=== PATIENT | male | born 1940 | race African-American/Black ===

== ENCOUNTER 2017-12-18 10:38 | Emergency (ER) | payer MEDICARE, MEDICAID ==
[~2017-12-18] VITALS: Ht 172.7 cm; Wt 70.0 kg
[~2017-12-18 10:38] MED LIST: AMLO10TA4; FURO-151; IBUP-779; POTASSIUM; SIMV10TA2
[2017-12-18] MEDS ORDERED: OXYMETAZOLINE HCL NASAL SPRAY 15ML BOTHNSTRLS STA (10:58)
[2017-12-18] MEDS ORDERED: VISCOUS LIDOCAINE 2% 15 ML UDC MM STA (10:58)
[2017-12-18 11:25] LABS: EOSINOPHILS % 2.3 % (0.0-5.0); HEMATOCRIT. 41.5 % (42.0-52.0); HEMOGLOBIN. 13.7 g/dL (14.0-18.0); LYMPHOCYTES % 20.7 % (20.0-50.0); MEAN CORPUSCULAR HEMOGLOBIN 30.2 pg (28.0-32.0); MEAN CORPUSCULAR VOLUME 91.4 fL (80.0-94.0); MEAN PLATELET VOLUME 10.6 fl (7.4-10.4); MONOCYTES % 8.2 % (2.0-8.0); NEUTROPHILS % 67.8 % (40.0-76.0); PLATELET 208 x1000/uL (130-400); RED BLOOD CELL COUNT 4.54 mill/uL (4.7-6.1); RED CELL DISTRIBUTION WIDTH 13.4 % (11.6-14.6)
[2017-12-18 11:29] LABS: CHLORIDE 102 mEq/L (98-107)
[2017-12-18 11:32] LABS: PROTHROMBIN TIME 10.8 sec (9.4-11.6)
[2017-12-18 14:45] VITALS: BP 182/94
== END 2017-12-18 14:46 | disposition home or self-care (01) ==
LOC: ER 10:38
DX: R04.0 Epistaxis (principal); I10 Essential (primary) hypertension; D64.9 Anemia, unspecified; J44.9 Chronic obstructive pulmonary disease, unspecified; E78.00 Pure hypercholesterolemia, unspecified; E87.3 Alkalosis
CPT/HCPCS: 30901; 36415; 80053; 85025; 85610; 99284

== ENCOUNTER 2019-12-24 10:30 | Inpatient (IN) | payer OTHER, MEDICAID ==
[~2019-12-24] VITALS: Ht 180.3 cm; Wt 71.7 kg
[2019-12-24 11:33] LABS: CHLORIDE 103 mEq/L (98-107)
[2019-12-24 11:45] LABS: BASOPHILS % 0.7 % (0.0-2.0); EOSINOPHILS % 0.2 % (0.0-5.0); HEMATOCRIT. 46.8 % (42.0-52.0); HEMOGLOBIN. 14.7 g/dL (14.0-18.0); LYMPHOCYTES % 7.1 % (20.0-50.0); MEAN CORPUSCULAR HEMOGLOBIN 28.2 pg (28.0-32.0); MEAN CORPUSCULAR VOLUME 89.3 fL (80.0-94.0); MEAN PLATELET VOLUME 9.8 fl (7.4-10.4); MONOCYTES % 8.5 % (2.0-8.0); NEUTROPHILS % 83.5 % (40.0-76.0); PLATELET 266 x1000/uL (130-400); RED BLOOD CELL COUNT 5.24 mill/uL (4.7-6.1); RED CELL DISTRIBUTION WIDTH 13.3 % (11.6-14.6)
[2019-12-24] MEDS ORDERED: CLONIDINE 0.1MG TABLET PO PRN (14:00)
[2019-12-24] MEDS ORDERED: DIPHENHYDRAMINE 50MG/ML VIAL IV PRN (14:00)
[2019-12-24] MEDS: ENOXAPARIN 40MG/0.4ML SYR SUBCUT SCH ×2 (14:00→20:30)
[2019-12-24] MEDS ORDERED: IPRATROPIUM/ALBUTEROL 0.5-3(2.5)MG/3ML NEB HHN PRN (14:00)
[2019-12-24] MEDS ORDERED: ONDANSETRON HCL 4MG/2ML INJ IV PRN (14:00)
[2019-12-24] MEDS ORDERED: FUROSEMIDE 40MG/4ML VIAL IVP SCH (15:00)
[2019-12-24 15:11] LABS: PHOSPHORUS 3.6 mg/dL (2.5-4.9)
[2019-12-24] MEDS ORDERED: DEXTROSE 50% WATER 50ML SYRINGE IV ONE (16:08)
[2019-12-24] MEDS ORDERED: DEXT 5%/0.9% NACL 1,000 ML IV ONE (16:30)
[2019-12-24] MEDS ORDERED: DEXTROSE 50% WATER 50ML SYRINGE IV PRN (16:30)
[2019-12-24] MEDS: BLOOD SUGAR DIAGNOSTIC STRIP TEST SCH (17:07)
[2019-12-24] MEDS ORDERED: SUCCINYLCHOLINE CHLORIDE 200MG/10ML IV ONE (19:30)
[2019-12-24] MEDS ORDERED: ETOMIDATE 2MG/ML 10ML VIAL IV ONE (19:30)
[2019-12-24] MEDS ORDERED: PROPOFOL 10MG/ML 100ML 100 ML IV ONE (19:30)
[2019-12-24] MEDS: PANTOPRAZOLE SODIUM 40 MG/VIAL IV SCH (20:15)
[2019-12-24] MEDS ORDERED: ASPIRIN 81MG TABLET PO NR (20:15)
[2019-12-24 20:28] LABS: BG BASE EXCESS 1.9 mmol/L (-2.0-2.0); BG CARBOXYHEMOGLOBIN 1.1 % (0.5-1.5); BG DEOXYHEMOGLOBIN 16.8 % (0.0-5.0); BG FRACTION INSPIRED OXYGEN 100; BG HCO3 ACT 34.5 mmol/L (22.0-26.0); BG METHEMOGLOBIN 0.4 % (0.0-1.5); BG OXYGEN SATURATION 82.9 % (92.0-98.5); BG OXYHEMOGLOBIN 81.7 % (94.0-97.0); BG PCO2 95.7 mmHg (35.0-45.0); BG PH 7.175 (7.350-7.450); BG PO2 53.6 mmHg (75.0-100.0); BG SAMPLE SITE RIGHT RADIAL; BG TIDAL VOLUME(mL) 500 mL; BG TOTAL HEMOGLOBIN 16.9 g/dL (12.0-18.0); BG VENT MODE VENT - A/C; BG VENT RATE 14 set
[2019-12-24] MEDS ORDERED: ATORVASTATIN CALCIUM 10MG TABLET PO SCH (21:00)
[2019-12-24] MEDS ORDERED: NOREPINEPHRINE 4 MG in DEXT 5% WATER 246 ML IV ONE (21:15)
[2019-12-24] MEDS ORDERED: MIDAZOLAM HCL 50 MG in DEXTROSE 5% WATER 40 ML IV PRN (21:15)
[2019-12-24] MEDS ORDERED: MIDAZOLAM HCL 50 MG in DEXTROSE 5% WATER 40 ML IV ONE (21:15)
[2019-12-24] MEDS ORDERED: NOREPINEPHRINE 4MG/250ML PMX 250 ML IV PRN (21:15)
[2019-12-24 22:07] LABS: BG BASE EXCESS 2.4 mmol/L (-2.0-2.0); BG CARBOXYHEMOGLOBIN 1.1 % (0.5-1.5); BG DEOXYHEMOGLOBIN 11.1 % (0.0-5.0); BG FRACTION INSPIRED OXYGEN 100; BG HCO3 ACT 32.6 mmol/L (22.0-26.0); BG METHEMOGLOBIN 0.3 % (0.0-1.5); BG OXYGEN SATURATION 88.7 % (92.0-98.5); BG OXYHEMOGLOBIN 87.5 % (94.0-97.0); BG PCO2 76.5 mmHg (35.0-45.0); BG PH 7.248 (7.350-7.450); BG PO2 58.3 mmHg (75.0-100.0); BG SAMPLE SITE RIGHT BRACHIAL; BG TIDAL VOLUME(mL) 500 mL; BG TOTAL HEMOGLOBIN 16.6 g/dL (12.0-18.0); BG VENT MODE VENT - A/C; BG VENT RATE 20 set
[2019-12-25] VITALS (82 sets, daily range): BP systolic 59–145; BP diastolic 30–82
[2019-12-25 04:26] LABS: BG BASE EXCESS 3.9 mmol/L (-2.0-2.0); BG CARBOXYHEMOGLOBIN 0.7 % (0.5-1.5); BG DEOXYHEMOGLOBIN 0.4 % (0.0-5.0); BG FRACTION INSPIRED OXYGEN 100; BG METHEMOGLOBIN 0.5 % (0.0-1.5); BG OXYGEN SATURATION 99.6 % (92.0-98.5); BG OXYHEMOGLOBIN 98.4 % (94.0-97.0); BG PCO2 40.3 mmHg (35.0-45.0); BG PO2 211.8 mmHg (75.0-100.0); BG SAMPLE SITE RIGHT RADIAL; BG TIDAL VOLUME(mL) 550 mL; BG TOTAL HEMOGLOBIN 15.8 g/dL (12.0-18.0); BG VENT MODE VENT - A/C; BG VENT RATE 20 set
[2019-12-25] MEDS ORDERED: PHENYLEPHRINE 40 MG in DEXT 5% WATER 496 ML IV PRN ×2 (04:45→05:00)
[2019-12-25] MEDS ORDERED: PHENYLEPHRINE 40 MG in DEXT 5% WATER 496 ML IV ONE (05:00)
[2019-12-25] MEDS ORDERED: MIDAZOLAM HCL 100 MG in DEXT 5% WATER 80 ML IV PRN (05:00)
[2019-12-25] MEDS ORDERED: FENTANYL CITRATE/PF 1,000 MCG in SODIUM CHLORIDE 0.9% 80 ML IV PRN (05:00)
[2019-12-25] MEDS: ACETAMINOPHEN 650MG/20.3ML UDC PO PRN (05:12)
[2019-12-25 05:57] LABS: BASOPHILS % 0.4 % (0.0-2.0); EOSINOPHILS % 0.2 % (0.0-5.0); HEMATOCRIT. 47.5 % (42.0-52.0); HEMOGLOBIN. 14.9 g/dL (14.0-18.0); LYMPHOCYTES % 11.2 % (20.0-50.0); MEAN CORPUSCULAR HEMOGLOBIN 28.2 pg (28.0-32.0); MEAN PLATELET VOLUME 10.1 fl (7.4-10.4); MONOCYTES % 9.1 % (2.0-8.0); NEUTROPHILS % 79.1 % (40.0-76.0); PLATELET 253 x1000/uL (130-400); RED BLOOD CELL COUNT 5.28 mill/uL (4.7-6.1); RED CELL DISTRIBUTION WIDTH 13.9 % (11.6-14.6)
[2019-12-25 05:59] LABS: CHLORIDE 101 mEq/L (98-107)
[2019-12-25 06:08] LABS: LDL CHOLESTEROL 85 mg/dL (5-100)
[2019-12-25 06:09] LABS: HDL CHOLESTEROL 41 mg/dL (40-59)
[2019-12-25] MEDS ORDERED: DOPAMINE 800MG PREMIX (DOUBLE) 250 ML IV PRN (06:45)
[2019-12-25] MEDS: BLOOD SUGAR DIAGNOSTIC STRIP TEST SCH ×4 (07:36→21:41)
[2019-12-25] MEDS: PANTOPRAZOLE SODIUM 40 MG/VIAL IV SCH (08:02)
[2019-12-25] MEDS: INSULIN LISPRO 100 UNITS/ML SUBCUT SCH ×4 (08:03→21:32)
[2019-12-25] MEDS ORDERED: FUROSEMIDE 40MG/4ML VIAL IVP SCH (09:00)
[2019-12-25] MEDS: ASPIRIN 81MG TABLET NG SCH (09:38)
[2019-12-25] MEDS: IPRATROPIUM/ALBUTEROL 0.5-3(2.5)MG/3ML NEB HHN SCH ×3 (09:46→20:28)
[2019-12-25] MEDS: ENOXAPARIN 80MG/0.8ML SYR SUBCUT SCH ×2 (12:19→21:31)
[2019-12-25] MEDS ORDERED: PHENYLEPHRINE 40 MG in SODIUM CHLORIDE 0.9% 496 ML IV PRN (14:37)
[2019-12-25] MEDS ORDERED: ALBUMIN HUMAN 25GM/100ML (25%) IV NR (14:45)
[2019-12-25] MEDS ORDERED: VANCOMYCIN 1,750 MG in DEXT 5% WATER 250 ML IV NR (17:00)
[2019-12-25] MEDS ORDERED: PROPOFOL 10MG/ML 100ML 100 ML IV PRN (18:30)
[2019-12-25] MEDS: PIPERACILLIN/TAZOBACTAM 2.25 G in DEXTROSE 5% WATER 50 ML IV SCH (21:31)
[2019-12-25] MEDS: ATORVASTATIN CALCIUM 40MG TABLET PO SCH (21:31)
[2019-12-26] VITALS (88 sets, daily range): BP systolic 68–145; BP diastolic 39–101
[2019-12-26] MEDS: PHENYLEPHRINE 40 MG in SODIUM CHLORIDE 0.9% 496 ML IV PRN ×2 (01:20→12:00)
[2019-12-26] MEDS: IPRATROPIUM/ALBUTEROL 0.5-3(2.5)MG/3ML NEB HHN SCH ×3 (02:18→14:53)
[2019-12-26] MEDS: PIPERACILLIN/TAZOBACTAM 2.25 G in DEXTROSE 5% WATER 50 ML IV SCH ×3 (05:19→21:26)
[2019-12-26 05:51] LABS: BASOPHILS % 0.4 % (0.0-2.0); EOSINOPHILS % 0.1 % (0.0-5.0); HEMATOCRIT. 39.8 % (42.0-52.0); HEMOGLOBIN. 13.2 g/dL (14.0-18.0); LYMPHOCYTES % 7.4 % (20.0-50.0); MEAN CORPUSCULAR VOLUME 87.3 fL (80.0-94.0); MEAN PLATELET VOLUME 10.3 fl (7.4-10.4); MONOCYTES % 6.4 % (2.0-8.0); NEUTROPHILS % 85.7 % (40.0-76.0); PLATELET 229 x1000/uL (130-400); RED BLOOD CELL COUNT 4.56 mill/uL (4.7-6.1); RED CELL DISTRIBUTION WIDTH 13.3 % (11.6-14.6)
[2019-12-26 05:56] LABS: INR 1.3; PROTHROMBIN TIME 13.9 sec (9.6-11.0)
[2019-12-26 06:08] LABS: PHOSPHORUS 1.5 mg/dL (2.5-4.9)
[2019-12-26] MEDS: PANTOPRAZOLE SODIUM 40 MG/VIAL IV SCH (08:41)
[2019-12-26] MEDS: ENOXAPARIN 80MG/0.8ML SYR SUBCUT SCH ×2 (08:42→20:25)
[2019-12-26] MEDS: ASPIRIN 81MG TABLET NG SCH (08:42)
[2019-12-26] MEDS: INSULIN LISPRO 100 UNITS/ML SUBCUT SCH ×4 (08:43→20:27)
[2019-12-26] MEDS: BLOOD SUGAR DIAGNOSTIC STRIP TEST SCH ×4 (08:43→20:28)
[2019-12-26] MEDS: ACETAMINOPHEN 650MG/20.3ML UDC PO PRN ×2 (08:44→11:27)
[2019-12-26] MEDS: VANCOMYCIN 750 MG PREMIX 150 ML IV SCH (09:08)
[2019-12-26 09:15] LABS: BG BASE EXCESS 4.3 mmol/L (-2.0-2.0); BG CARBOXYHEMOGLOBIN 0.8 % (0.5-1.5); BG DEOXYHEMOGLOBIN 4.5 % (0.0-5.0); BG FRACTION INSPIRED OXYGEN 50; BG HCO3 ACT 29.7 mmol/L (22.0-26.0); BG METHEMOGLOBIN 0.3 % (0.0-1.5); BG OXYGEN SATURATION 95.4 % (92.0-98.5); BG OXYHEMOGLOBIN 94.4 % (94.0-97.0); BG PCO2 47.2 mmHg (35.0-45.0); BG PH 7.416 (7.350-7.450); BG PO2 75.8 mmHg (75.0-100.0); BG SAMPLE SITE RIGHT RADIAL; BG TIDAL VOLUME(mL) 550 mL; BG TOTAL HEMOGLOBIN 13.4 g/dL (12.0-18.0); BG VENT MODE VENT - A/C; BG VENT RATE 16 set
[2019-12-26] MEDS ORDERED: PROPOFOL 10MG/ML 100ML 100 ML IV PRN (11:45)
[2019-12-26] MEDS: MIDODRINE HCL 5MG TABLET NG SCH ×2 (15:16→17:59)
[2019-12-26] MEDS ORDERED: SODIUM PHOS,M-BASIC-D-BASIC 30 MM in DEXT 5% WATER 500 ML IV SCH (16:00)
[2019-12-26] MEDS: ATORVASTATIN CALCIUM 40MG TABLET PO SCH (20:25)
[2019-12-27] VITALS (86 sets, daily range): BP systolic 65–167; BP diastolic 35–127
[2019-12-27] MEDS: IPRATROPIUM/ALBUTEROL 0.5-3(2.5)MG/3ML NEB HHN SCH ×4 (00:58→20:30)
[2019-12-27] MEDS: PHENYLEPHRINE 40 MG in SODIUM CHLORIDE 0.9% 496 ML IV PRN ×2 (01:12→12:11)
[2019-12-27] MEDS: VANCOMYCIN 750 MG PREMIX 150 ML IV SCH ×2 (05:14→21:14)
[2019-12-27] MEDS: PIPERACILLIN/TAZOBACTAM 2.25 G in DEXTROSE 5% WATER 50 ML IV SCH (05:14)
[2019-12-27 06:22] LABS: HEMATOCRIT. 38.2 % (42.0-52.0); HEMOGLOBIN. 12.2 g/dL (14.0-18.0); MEAN CORPUSCULAR VOLUME 87.3 fL (80.0-94.0); MEAN PLATELET VOLUME 10.6 fl (7.4-10.4); PLATELET 210 x1000/uL (130-400); RED BLOOD CELL COUNT 4.37 mill/uL (4.7-6.1); RED CELL DISTRIBUTION WIDTH 13.7 % (11.6-14.6)
[2019-12-27 06:27] LABS: PHOSPHORUS 2.7 mg/dL (2.5-4.9)
[2019-12-27] MEDS: ENOXAPARIN 80MG/0.8ML SYR SUBCUT SCH ×2 (08:22→20:25)
[2019-12-27] MEDS: MIDODRINE HCL 5MG TABLET NG SCH ×3 (08:23→17:05)
[2019-12-27] MEDS: ASPIRIN 81MG TABLET NG SCH (08:23)
[2019-12-27] MEDS: PANTOPRAZOLE SODIUM 40 MG/VIAL IV SCH (08:23)
[2019-12-27] MEDS: BLOOD SUGAR DIAGNOSTIC STRIP TEST SCH ×4 (08:26→21:00)
[2019-12-27] MEDS: INSULIN LISPRO 100 UNITS/ML SUBCUT SCH ×4 (08:26→21:14)
[2019-12-27 08:29] LABS: PLATELET ESTIMATE NORMAL
[2019-12-27 08:41] LABS: BG BASE EXCESS 2.9 mmol/L (-2.0-2.0); BG CARBOXYHEMOGLOBIN 0.3 % (0.5-1.5); BG DEOXYHEMOGLOBIN 2.5 % (0.0-5.0); BG FRACTION INSPIRED OXYGEN 50; BG HCO3 ACT 27.3 mmol/L (22.0-26.0); BG METHEMOGLOBIN 0.3 % (0.0-1.5); BG OXYGEN SATURATION 97.5 % (92.0-98.5); BG OXYHEMOGLOBIN 96.9 % (94.0-97.0); BG PH 7.441 (7.350-7.450); BG PO2 99.3 mmHg (75.0-100.0); BG SAMPLE SITE RIGHT RADIAL; BG TIDAL VOLUME(mL) 550 mL; BG TOTAL HEMOGLOBIN 12.7 g/dL (12.0-18.0); BG VENT MODE VENT - A/C; BG VENT RATE 16 set
[2019-12-27] MEDS: PIPERACILLIN/TAZOBACTAM 3.375 G in DEXT 5% WATER 100 ML IV SCH ×3 (13:00→23:16)
[2019-12-27] MEDS ORDERED: FUROSEMIDE 20MG/2ML VIAL IVP NR (13:15)
[2019-12-27] MEDS: PROPOFOL 10MG/ML 100ML 100 ML IV PRN ×2 (15:34→23:33)
[2019-12-27] MEDS: ATORVASTATIN CALCIUM 40MG TABLET PO SCH (20:24)
[2019-12-27] MEDS: ACETYLCYSTEINE 100MG/ML 10% VIAL 4ML INH SCH (20:30)
[2019-12-28] VITALS (81 sets, daily range): BP systolic 83–149; BP diastolic 25–84
[2019-12-28] MEDS: IPRATROPIUM/ALBUTEROL 0.5-3(2.5)MG/3ML NEB HHN SCH ×4 (02:17→20:16)
[2019-12-28] MEDS: PIPERACILLIN/TAZOBACTAM 3.375 G in DEXT 5% WATER 100 ML IV SCH ×3 (05:07→17:16)
[2019-12-28 06:31] LABS: HEMATOCRIT. 36.9 % (42.0-52.0); HEMOGLOBIN. 11.9 g/dL (14.0-18.0); MEAN CORPUSCULAR VOLUME 87.3 fL (80.0-94.0); MEAN PLATELET VOLUME 10.8 fl (7.4-10.4); PLATELET 158 x1000/uL (130-400); RED BLOOD CELL COUNT 4.23 mill/uL (4.7-6.1); RED CELL DISTRIBUTION WIDTH 13.5 % (11.6-14.6)
[2019-12-28 06:56] LABS: PHOSPHORUS 2.2 mg/dL (2.5-4.9)
[2019-12-28] MEDS: BLOOD SUGAR DIAGNOSTIC STRIP TEST SCH ×4 (07:59→20:59)
[2019-12-28 08:03] LABS: PLATELET ESTIMATE NORMAL
[2019-12-28] MEDS: ACETYLCYSTEINE 100MG/ML 10% VIAL 4ML INH SCH ×2 (08:11→20:15)
[2019-12-28] MEDS: PANTOPRAZOLE SODIUM 40 MG/VIAL IV SCH (08:49)
[2019-12-28] MEDS: ENOXAPARIN 80MG/0.8ML SYR SUBCUT SCH ×2 (08:49→20:42)
[2019-12-28] MEDS: MIDODRINE HCL 5MG TABLET NG SCH ×3 (08:50→17:16)
[2019-12-28] MEDS: ASPIRIN 81MG TABLET NG SCH (08:50)
[2019-12-28] MEDS: INSULIN LISPRO 100 UNITS/ML SUBCUT SCH ×4 (08:51→21:09)
[2019-12-28 09:57] LABS: BG BASE EXCESS 4.4 mmol/L (-2.0-2.0); BG CARBOXYHEMOGLOBIN 0.2 % (0.5-1.5); BG DEOXYHEMOGLOBIN 1.3 % (0.0-5.0); BG FRACTION INSPIRED OXYGEN 40; BG HCO3 ACT 28.1 mmol/L (22.0-26.0); BG METHEMOGLOBIN 0.3 % (0.0-1.5); BG OXYGEN SATURATION 98.7 % (92.0-98.5); BG OXYHEMOGLOBIN 98.2 % (94.0-97.0); BG PCO2 38.5 mmHg (35.0-45.0); BG PH 7.481 (7.350-7.450); BG SAMPLE SITE RIGHT RADIAL; BG TIDAL VOLUME(mL) 550 mL; BG VENT MODE VENT - A/C; BG VENT RATE 16 set
[2019-12-28] MEDS ORDERED: PROPOFOL 10MG/ML 100ML 100 ML IV PRN (11:00)
[2019-12-28] MEDS: PROPOFOL 10MG/ML 100ML 100 ML IV PRN ×2 (12:12→20:44)
[2019-12-28] MEDS: VANCOMYCIN 1 G PREMIX 200 ML IV SCH (14:45)
[2019-12-28] MEDS ORDERED: POTASSIUM PHOS,M-BASIC-D-BASIC 20 MMOL in DEXT 5% WATER 243.3333 ML IV NR (17:00)
[2019-12-28] MEDS: ATORVASTATIN CALCIUM 40MG TABLET PO SCH (20:42)
[2019-12-29] VITALS (70 sets, daily range): BP systolic 87–169; BP diastolic 44–89
[2019-12-29] MEDS: PIPERACILLIN/TAZOBACTAM 3.375 G in DEXT 5% WATER 100 ML IV SCH ×4 (00:06→17:25)
[2019-12-29] MEDS ORDERED: PROPOFOL 10MG/ML 100ML 100 ML IV PRN ×2 (00:30)
[2019-12-29] MEDS: IPRATROPIUM/ALBUTEROL 0.5-3(2.5)MG/3ML NEB HHN SCH ×5 (02:30→20:40)
[2019-12-29 04:34] LABS: HEMATOCRIT. 36.9 % (42.0-52.0); HEMOGLOBIN. 11.9 g/dL (14.0-18.0); MEAN CORPUSCULAR HEMOGLOBIN 28.3 pg (28.0-32.0); MEAN CORPUSCULAR VOLUME 87.6 fL (80.0-94.0); MEAN PLATELET VOLUME 11.1 fl (7.4-10.4); PHOSPHORUS 3.8 mg/dL (2.5-4.9); PLATELET 150 x1000/uL (130-400); RED BLOOD CELL COUNT 4.21 mill/uL (4.7-6.1); RED CELL DISTRIBUTION WIDTH 13.5 % (11.6-14.6)
[2019-12-29] MEDS: PANTOPRAZOLE SODIUM 40 MG/VIAL IV SCH (08:13)
[2019-12-29] MEDS: ENOXAPARIN 80MG/0.8ML SYR SUBCUT SCH ×2 (08:13→21:21)
[2019-12-29] MEDS: ASPIRIN 81MG TABLET NG SCH (08:13)
[2019-12-29] MEDS: INSULIN LISPRO 100 UNITS/ML SUBCUT SCH ×4 (08:13→21:23)
[2019-12-29] MEDS: MIDODRINE HCL 5MG TABLET NG SCH ×3 (08:14→17:25)
[2019-12-29] MEDS: BLOOD SUGAR DIAGNOSTIC STRIP TEST SCH ×4 (08:15→21:24)
[2019-12-29] MEDS: VANCOMYCIN 1 G PREMIX 200 ML IV SCH (08:15)
[2019-12-29] MEDS: ACETYLCYSTEINE 100MG/ML 10% VIAL 4ML INH SCH ×2 (08:49→20:40)
[2019-12-29 09:44] LABS: PLATELET ESTIMATE NORMAL
[2019-12-29 10:03] LABS: BG BASE EXCESS -1.5 mmol/L (-2.0-2.0); BG DEOXYHEMOGLOBIN 5.2 % (0.0-5.0); BG FRACTION INSPIRED OXYGEN 35; BG HCO3 ACT 23.6 mmol/L (22.0-26.0); BG METHEMOGLOBIN 0.3 % (0.0-1.5); BG OXYGEN SATURATION 94.7 % (92.0-98.5); BG OXYHEMOGLOBIN 93.5 % (94.0-97.0); BG PCO2 41.5 mmHg (35.0-45.0); BG PH 7.373 (7.350-7.450); BG PO2 77.1 mmHg (75.0-100.0); BG SAMPLE SITE RIGHT RADIAL; BG TIDAL VOLUME(mL) 550 mL; BG TOTAL HEMOGLOBIN 11.7 g/dL (12.0-18.0); BG VENT MODE VENT - A/C; BG VENT RATE 16 set
[2019-12-29] MEDS ORDERED: MIDAZOLAM HCL 100 MG in DEXT 5% WATER 80 ML IV PRN (11:00)
[2019-12-29] MEDS: METOCLOPRAMIDE HCL 10MG/2ML VIAL IV SCH ×2 (12:20→17:25)
[2019-12-29] MEDS ORDERED: SODIUM CHLORIDE 0.9% 1,000 ML IV SCH (18:00)
[2019-12-29] MEDS ORDERED: SODIUM CHLORIDE 0.9% 500 ML IV ONE (18:30)
[2019-12-29] MEDS: ATORVASTATIN CALCIUM 40MG TABLET PO SCH (21:21)
[2019-12-30] VITALS (40 sets, daily range): BP systolic 80–157; BP diastolic 54–103
[2019-12-30] MEDS: PIPERACILLIN/TAZOBACTAM 3.375 G in DEXT 5% WATER 100 ML IV SCH ×5 (00:23→23:45)
[2019-12-30] MEDS: METOCLOPRAMIDE HCL 10MG/2ML VIAL IV SCH ×5 (00:23→23:45)
[2019-12-30] MEDS: IPRATROPIUM/ALBUTEROL 0.5-3(2.5)MG/3ML NEB HHN SCH ×4 (01:40→20:38)
[2019-12-30] MEDS ORDERED: VANCOMYCIN 1,000 MG in DEXT 5% WATER 250 ML IV SCH (03:00)
[2019-12-30 06:08] LABS: BASOPHILS % 0.4 % (0.0-2.0); EOSINOPHILS % 2.3 % (0.0-5.0); HEMATOCRIT. 35.8 % (42.0-52.0); HEMOGLOBIN. 11.7 g/dL (14.0-18.0); LYMPHOCYTES % 8.3 % (20.0-50.0); MEAN CORPUSCULAR HEMOGLOBIN 28.3 pg (28.0-32.0); MEAN CORPUSCULAR VOLUME 86.8 fL (80.0-94.0); MEAN PLATELET VOLUME 11.6 fl (7.4-10.4); PLATELET 172 x1000/uL (130-400); RED BLOOD CELL COUNT 4.13 mill/uL (4.7-6.1); RED CELL DISTRIBUTION WIDTH 13.6 % (11.6-14.6)
[2019-12-30 06:15] LABS: PHOSPHORUS 3.4 mg/dL (2.5-4.9)
[2019-12-30] MEDS: ACETYLCYSTEINE 100MG/ML 10% VIAL 4ML INH SCH ×2 (08:47→20:38)
[2019-12-30] MEDS: ENOXAPARIN 80MG/0.8ML SYR SUBCUT SCH ×2 (08:57→20:41)
[2019-12-30] MEDS: PANTOPRAZOLE SODIUM 40 MG/VIAL IV SCH (08:57)
[2019-12-30] MEDS: MIDODRINE HCL 5MG TABLET NG SCH ×3 (08:58→18:00)
[2019-12-30] MEDS: ASPIRIN 81MG TABLET NG SCH (08:58)
[2019-12-30 10:07] LABS: BG BASE EXCESS 2.2 mmol/L (-2.0-2.0); BG CARBOXYHEMOGLOBIN 0.6 % (0.5-1.5); BG DEOXYHEMOGLOBIN 5.2 % (0.0-5.0); BG FRACTION INSPIRED OXYGEN 35; BG HCO3 ACT 27.7 mmol/L (22.0-26.0); BG METHEMOGLOBIN 0.3 % (0.0-1.5); BG OXYGEN SATURATION 94.8 % (92.0-98.5); BG OXYHEMOGLOBIN 93.9 % (94.0-97.0); BG PCO2 46.9 mmHg (35.0-45.0); BG PH 7.389 (7.350-7.450); BG PO2 76.9 mmHg (75.0-100.0); BG SAMPLE SITE RIGHT RADIAL; BG TIDAL VOLUME(mL) 550 mL; BG VENT MODE VENT - A/C; BG VENT RATE 16 set
[2019-12-30] MEDS: BLOOD SUGAR DIAGNOSTIC STRIP TEST SCH ×3 (11:55→23:36)
[2019-12-30] MEDS: INSULIN LISPRO 100 UNITS/ML SUBCUT SCH ×3 (12:09→23:45)
[2019-12-30] MEDS: ACETAMINOPHEN 650MG/20.3ML UDC PO PRN (18:24)
[2019-12-30] MEDS: ATORVASTATIN CALCIUM 40MG TABLET PO SCH (20:40)
[2019-12-31] VITALS (24 sets, daily range): BP systolic 123–151; BP diastolic 64–91
[2019-12-31] MEDS: IPRATROPIUM/ALBUTEROL 0.5-3(2.5)MG/3ML NEB HHN SCH ×3 (01:42→19:46)
[2019-12-31] MEDS: BLOOD SUGAR DIAGNOSTIC STRIP TEST SCH ×3 (06:02→17:40)
[2019-12-31] MEDS: METOCLOPRAMIDE HCL 10MG/2ML VIAL IV SCH (06:18)
[2019-12-31] MEDS: PIPERACILLIN/TAZOBACTAM 3.375 G in DEXT 5% WATER 100 ML IV SCH ×3 (06:18→17:05)
[2019-12-31] MEDS: INSULIN LISPRO 100 UNITS/ML SUBCUT SCH ×3 (06:19→17:48)
[2019-12-31 06:59] LABS: BASOPHILS % 0.4 % (0.0-2.0); EOSINOPHILS % 1.3 % (0.0-5.0); HEMOGLOBIN. 11.6 g/dL (14.0-18.0); LYMPHOCYTES % 9.3 % (20.0-50.0); MEAN CORPUSCULAR HEMOGLOBIN 28.1 pg (28.0-32.0); MEAN CORPUSCULAR VOLUME 87.6 fL (80.0-94.0); MEAN PLATELET VOLUME 11.5 fl (7.4-10.4); MONOCYTES % 14.9 % (2.0-8.0); NEUTROPHILS % 74.1 % (40.0-76.0); PLATELET 210 x1000/uL (130-400); RED BLOOD CELL COUNT 4.11 mill/uL (4.7-6.1); RED CELL DISTRIBUTION WIDTH 13.3 % (11.6-14.6)
[2019-12-31 07:19] LABS: CHLORIDE 101 mEq/L (98-107)
[2019-12-31 07:27] LABS: PHOSPHORUS 2.8 mg/dL (2.5-4.9)
[2019-12-31] MEDS: ACETYLCYSTEINE 100MG/ML 10% VIAL 4ML INH SCH ×2 (07:43→19:46)
[2019-12-31] MEDS: PANTOPRAZOLE SODIUM 40 MG/VIAL IV SCH (08:26)
[2019-12-31] MEDS: MIDODRINE HCL 5MG TABLET NG SCH ×3 (08:26→17:00)
[2019-12-31] MEDS: ASPIRIN 81MG TABLET NG SCH (08:26)
[2019-12-31] MEDS: ENOXAPARIN 80MG/0.8ML SYR SUBCUT SCH ×2 (08:26→20:21)
[2019-12-31 09:09] LABS: BG BASE EXCESS 3.7 mmol/L (-2.0-2.0); BG CARBOXYHEMOGLOBIN 0.7 % (0.5-1.5); BG DEOXYHEMOGLOBIN 5.6 % (0.0-5.0); BG FRACTION INSPIRED OXYGEN 35; BG HCO3 ACT 29.9 mmol/L (22.0-26.0); BG METHEMOGLOBIN 0.4 % (0.0-1.5); BG OXYGEN SATURATION 94.3 % (92.0-98.5); BG OXYHEMOGLOBIN 93.3 % (94.0-97.0); BG PH 7.377 (7.350-7.450); BG PO2 75.4 mmHg (75.0-100.0); BG SAMPLE SITE RIGHT RADIAL; BG TIDAL VOLUME(mL) 550 mL; BG TOTAL HEMOGLOBIN 12.2 g/dL (12.0-18.0); BG VENT MODE VENT - A/C; BG VENT RATE 12 set
[2019-12-31] MEDS ORDERED: LIDOCAINE HCL 1% 20ML VIAL (Pyxis) INJ ONE (09:10)
[2019-12-31] MEDS ORDERED: LORAZEPAM 2MG/ML CPJ IV PRN (10:45)
[2019-12-31] MEDS: ATORVASTATIN CALCIUM 40MG TABLET PO SCH (20:21)
[2019-12-31] MEDS: ACETAMINOPHEN 650MG/20.3ML UDC PO PRN (20:43)
[2020-01-01] VITALS (23 sets, daily range): BP systolic 90–151; BP diastolic 45–96
[2020-01-01] MEDS: PIPERACILLIN/TAZOBACTAM 3.375 G in DEXT 5% WATER 100 ML IV SCH ×4 (01:15→17:36)
[2020-01-01] MEDS: IPRATROPIUM/ALBUTEROL 0.5-3(2.5)MG/3ML NEB HHN SCH ×4 (01:54→20:45)
[2020-01-01] MEDS: BLOOD SUGAR DIAGNOSTIC STRIP TEST SCH ×4 (05:34→17:28)
[2020-01-01] MEDS: INSULIN LISPRO 100 UNITS/ML SUBCUT SCH ×4 (05:34→17:37)
[2020-01-01 06:32] LABS: BASOPHILS % 0.5 % (0.0-2.0); EOSINOPHILS % 1.5 % (0.0-5.0); HEMATOCRIT. 34.4 % (42.0-52.0); LYMPHOCYTES % 8.5 % (20.0-50.0); MEAN CORPUSCULAR HEMOGLOBIN 27.9 pg (28.0-32.0); MEAN CORPUSCULAR VOLUME 87.5 fL (80.0-94.0); MEAN PLATELET VOLUME 11.5 fl (7.4-10.4); MONOCYTES % 11.5 % (2.0-8.0); PLATELET 234 x1000/uL (130-400); RED BLOOD CELL COUNT 3.93 mill/uL (4.7-6.1); RED CELL DISTRIBUTION WIDTH 13.5 % (11.6-14.6)
[2020-01-01 06:51] LABS: PHOSPHORUS 3.2 mg/dL (2.5-4.9)
[2020-01-01] MEDS: ACETYLCYSTEINE 100MG/ML 10% VIAL 4ML INH SCH ×2 (08:25→20:45)
[2020-01-01] MEDS: ASPIRIN 81MG TABLET NG SCH (09:21)
[2020-01-01] MEDS: MIDODRINE HCL 5MG TABLET NG SCH ×3 (09:22→17:36)
[2020-01-01] MEDS: PANTOPRAZOLE SODIUM 40 MG/VIAL IV SCH (09:22)
[2020-01-01] MEDS: ENOXAPARIN 80MG/0.8ML SYR SUBCUT SCH ×2 (09:22→21:55)
[2020-01-01 09:23] LABS: BG BASE EXCESS 0.7 mmol/L (-2.0-2.0); BG CARBOXYHEMOGLOBIN 0.5 % (0.5-1.5); BG DEOXYHEMOGLOBIN 5.5 % (0.0-5.0); BG FRACTION INSPIRED OXYGEN 35; BG HCO3 ACT 25.9 mmol/L (22.0-26.0); BG METHEMOGLOBIN 0.2 % (0.0-1.5); BG OXYGEN SATURATION 94.5 % (92.0-98.5); BG OXYHEMOGLOBIN 93.8 % (94.0-97.0); BG PCO2 43.9 mmHg (35.0-45.0); BG PH 7.388 (7.350-7.450); BG SAMPLE SITE RIGHT RADIAL; BG TIDAL VOLUME(mL) 550 mL; BG TOTAL HEMOGLOBIN 11.2 g/dL (12.0-18.0); BG VENT MODE VENT - A/C; BG VENT RATE 12 set
[2020-01-01] MEDS ORDERED: DIATR MEGLU/DIATRIZOATE SOLN 120ML ONE (10:36)
[2020-01-01] MEDS ORDERED: DOXYCYCLINE 100 MG in DEXT 5% WATER 100 ML IV SCH (19:00)
[2020-01-01] MEDS: ATORVASTATIN CALCIUM 40MG TABLET PO SCH (21:55)
[2020-01-01] MEDS: DOXYCYCLINE HYCLATE 100MG CAPSULE PO SCH (21:55)
[2020-01-02] VITALS (43 sets, daily range): BP systolic 81–135; BP diastolic 44–100
[2020-01-02] MEDS: BLOOD SUGAR DIAGNOSTIC STRIP TEST SCH ×5 (00:29→23:23)
[2020-01-02] MEDS: PIPERACILLIN/TAZOBACTAM 3.375 G in DEXT 5% WATER 100 ML IV SCH ×5 (00:29→23:27)
[2020-01-02] MEDS: METOCLOPRAMIDE HCL 10MG TABLET PO SCH ×5 (00:29→23:27)
[2020-01-02] MEDS: INSULIN LISPRO 100 UNITS/ML SUBCUT SCH ×5 (00:32→23:28)
[2020-01-02] MEDS: IPRATROPIUM/ALBUTEROL 0.5-3(2.5)MG/3ML NEB HHN SCH ×4 (02:14→20:32)
[2020-01-02 06:14] LABS: HEMATOCRIT. 24.3 % (42.0-52.0); HEMOGLOBIN. 7.7 g/dL (14.0-18.0); MEAN CORPUSCULAR HEMOGLOBIN 27.9 pg (28.0-32.0); MEAN CORPUSCULAR VOLUME 88.4 fL (80.0-94.0); MEAN PLATELET VOLUME 11.5 fl (7.4-10.4); PLATELET 314 x1000/uL (130-400); RED BLOOD CELL COUNT 2.75 mill/uL (4.7-6.1); RED CELL DISTRIBUTION WIDTH 13.3 % (11.6-14.6)
[2020-01-02] MEDS: MIDODRINE HCL 5MG TABLET NG SCH ×4 (08:08→21:09)
[2020-01-02] MEDS: ENOXAPARIN 80MG/0.8ML SYR SUBCUT SCH (08:08)
[2020-01-02] MEDS: PANTOPRAZOLE SODIUM 40 MG/VIAL IV SCH (08:08)
[2020-01-02] MEDS: DOXYCYCLINE HYCLATE 100MG CAPSULE PO SCH ×2 (08:08→21:09)
[2020-01-02] MEDS: ASPIRIN 81MG TABLET NG SCH (08:08)
[2020-01-02 10:06] LABS: PLATELET ESTIMATE NORMAL
[2020-01-02] MEDS: ACETAMINOPHEN 650MG/20.3ML UDC PO PRN (21:08)
[2020-01-02] MEDS: ATORVASTATIN CALCIUM 40MG TABLET PO SCH (21:09)
[2020-01-02 22:52] LABS: HEMATOCRIT 22.4 % (42.0-52.0); HEMOGLOBIN 7.1 g/dL (14.0-18.0)
[2020-01-03] VITALS (55 sets, daily range): BP systolic 95–170; BP diastolic 51–142
[2020-01-03] MEDS: IPRATROPIUM/ALBUTEROL 0.5-3(2.5)MG/3ML NEB HHN SCH ×4 (01:58→19:38)
[2020-01-03] MEDS: METOCLOPRAMIDE HCL 10MG TABLET PO SCH ×4 (05:48→23:16)
[2020-01-03] MEDS: INSULIN LISPRO 100 UNITS/ML SUBCUT SCH ×4 (05:49→23:16)
[2020-01-03] MEDS: MIDODRINE HCL 5MG TABLET NG SCH ×3 (05:49→21:54)
[2020-01-03] MEDS: BLOOD SUGAR DIAGNOSTIC STRIP TEST SCH ×4 (05:49→23:15)
[2020-01-03] MEDS: PIPERACILLIN/TAZOBACTAM 3.375 G in DEXT 5% WATER 100 ML IV SCH ×4 (05:50→23:16)
[2020-01-03 07:09] LABS: HEMATOCRIT. 27.9 % (42.0-52.0); HEMOGLOBIN. 9.2 g/dL (14.0-18.0); MEAN CORPUSCULAR HEMOGLOBIN 28.8 pg (28.0-32.0); MEAN CORPUSCULAR VOLUME 87.7 fL (80.0-94.0); PLATELET 302 x1000/uL (130-400); RED BLOOD CELL COUNT 3.18 mill/uL (4.7-6.1); RED CELL DISTRIBUTION WIDTH 13.6 % (11.6-14.6)
[2020-01-03 07:15] LABS: CHLORIDE 103 mEq/L (98-107)
[2020-01-03 07:18] LABS: INR 1.1; PARTIAL THROMBOPLASTIN TIME 38.3 sec (23.4-31.0); PROTHROMBIN TIME 11.6 sec (9.6-11.0)
[2020-01-03 07:22] LABS: PHOSPHORUS 6.4 mg/dL (2.5-4.9)
[2020-01-03 07:36] LABS: CREATINE KINASE 2750 IU/L (39-308)
[2020-01-03 08:10] LABS: PLATELET ESTIMATE NORMAL
[2020-01-03] MEDS: PANTOPRAZOLE SODIUM 40 MG/VIAL IV SCH (08:38)
[2020-01-03] MEDS: DOXYCYCLINE HYCLATE 100MG CAPSULE PO SCH ×2 (08:38→21:54)
[2020-01-03 11:18] LABS: HEMATOCRIT 31.3 % (42.0-52.0); HEMOGLOBIN 10.2 g/dL (14.0-18.0)
[2020-01-03 15:49] LABS: HEMATOCRIT. 30.1 % (42.0-52.0); HEMOGLOBIN. 9.9 g/dL (14.0-18.0); MEAN CORPUSCULAR HEMOGLOBIN 28.8 pg (28.0-32.0); MEAN CORPUSCULAR VOLUME 87.7 fL (80.0-94.0); MEAN PLATELET VOLUME 10.7 fl (7.4-10.4); PLATELET 303 x1000/uL (130-400); RED BLOOD CELL COUNT 3.43 mill/uL (4.7-6.1); RED CELL DISTRIBUTION WIDTH 13.8 % (11.6-14.6)
[2020-01-03 20:48] LABS: PLATELET ESTIMATE NORMAL
[2020-01-03 21:53] LABS: HEMOGLOBIN. 9.5 g/dL (14.0-18.0); MEAN CORPUSCULAR HEMOGLOBIN 29.1 pg (28.0-32.0); MEAN CORPUSCULAR VOLUME 88.8 fL (80.0-94.0); MEAN PLATELET VOLUME 10.8 fl (7.4-10.4); PLATELET 303 x1000/uL (130-400); RED BLOOD CELL COUNT 3.26 mill/uL (4.7-6.1); RED CELL DISTRIBUTION WIDTH 13.8 % (11.6-14.6)
[2020-01-03] MEDS: ATORVASTATIN CALCIUM 40MG TABLET PO SCH (21:54)
[2020-01-04] VITALS (63 sets, daily range): BP systolic 80–149; BP diastolic 38–86
[2020-01-04] MEDS: IPRATROPIUM/ALBUTEROL 0.5-3(2.5)MG/3ML NEB HHN SCH ×4 (01:34→20:03)
[2020-01-04 04:45] LABS: HEMOGLOBIN. 8.5 g/dL (14.0-18.0); MEAN CORPUSCULAR HEMOGLOBIN 29.2 pg (28.0-32.0); MEAN CORPUSCULAR VOLUME 89.1 fL (80.0-94.0); MEAN PLATELET VOLUME 10.9 fl (7.4-10.4); PLATELET 355 x1000/uL (130-400); RED BLOOD CELL COUNT 2.92 mill/uL (4.7-6.1)
[2020-01-04 04:54] LABS: PHOSPHORUS 8.5 mg/dL (2.5-4.9)
[2020-01-04] MEDS: METOCLOPRAMIDE HCL 10MG TABLET PO SCH ×4 (05:21→23:03)
[2020-01-04] MEDS: BLOOD SUGAR DIAGNOSTIC STRIP TEST SCH ×4 (05:21→23:03)
[2020-01-04] MEDS: PIPERACILLIN/TAZOBACTAM 3.375 G in DEXT 5% WATER 100 ML IV SCH ×2 (05:22→12:14)
[2020-01-04] MEDS: MIDODRINE HCL 5MG TABLET NG SCH ×3 (05:22→22:08)
[2020-01-04] MEDS: INSULIN LISPRO 100 UNITS/ML SUBCUT SCH ×4 (05:23→20:40)
[2020-01-04 06:32] LABS: PLATELET ESTIMATE NORMAL
[2020-01-04 07:04] LABS: PLATELET ESTIMATE NORMAL
[2020-01-04] MEDS ORDERED: SODIUM POLYSTYRENE SULFONATE 15 G/60 ML BOT NG SCH (07:30)
[2020-01-04] MEDS: PANTOPRAZOLE SODIUM 40 MG/VIAL IV SCH (08:30)
[2020-01-04] MEDS: DOXYCYCLINE HYCLATE 100MG CAPSULE PO SCH ×2 (08:30→20:39)
[2020-01-04 09:39] LABS: BG BASE EXCESS -2.3 mmol/L (-2.0-2.0); BG CARBOXYHEMOGLOBIN 0.4 % (0.5-1.5); BG DEOXYHEMOGLOBIN 4.7 % (0.0-5.0); BG FRACTION INSPIRED OXYGEN 35; BG HCO3 ACT 22.3 mmol/L (22.0-26.0); BG METHEMOGLOBIN 0.5 % (0.0-1.5); BG OXYGEN SATURATION 95.3 % (92.0-98.5); BG OXYHEMOGLOBIN 94.4 % (94.0-97.0); BG PCO2 37.4 mmHg (35.0-45.0); BG PH 7.393 (7.350-7.450); BG PO2 83.2 mmHg (75.0-100.0); BG SAMPLE SITE RIGHT RADIAL; BG TIDAL VOLUME(mL) 500 mL; BG TOTAL HEMOGLOBIN 8.3 g/dL (12.0-18.0); BG VENT MODE VENT - A/C; BG VENT RATE 12 set
[2020-01-04 10:24] LABS: TOTAL IRON BINDING CAPACITY 301 ug/dL (250-450)
[2020-01-04 12:33] LABS: HEMATOCRIT. 27.2 % (42.0-52.0); MEAN CORPUSCULAR HEMOGLOBIN 29.6 pg (28.0-32.0); MEAN CORPUSCULAR VOLUME 89.1 fL (80.0-94.0); MEAN PLATELET VOLUME 10.6 fl (7.4-10.4); PLATELET 322 x1000/uL (130-400); RED BLOOD CELL COUNT 3.05 mill/uL (4.7-6.1); RED CELL DISTRIBUTION WIDTH 13.9 % (11.6-14.6)
[2020-01-04 14:07] LABS: PLATELET ESTIMATE NORMAL
[2020-01-04 18:57] LABS: HEMATOCRIT. 26.6 % (42.0-52.0); HEMOGLOBIN. 8.7 g/dL (14.0-18.0); MEAN CORPUSCULAR HEMOGLOBIN 29.8 pg (28.0-32.0); MEAN CORPUSCULAR VOLUME 90.8 fL (80.0-94.0); MEAN PLATELET VOLUME 10.5 fl (7.4-10.4); PLATELET 347 x1000/uL (130-400); RED BLOOD CELL COUNT 2.93 mill/uL (4.7-6.1); RED CELL DISTRIBUTION WIDTH 13.9 % (11.6-14.6)
[2020-01-04 19:12] LABS: INR 1.2
[2020-01-04 19:16] LABS: FIBRINOGEN > 850 mg/dL (200-400)
[2020-01-04] MEDS: PIPERACILLIN/TAZOBACTAM 2.25 G in DEXTROSE 5% WATER 50 ML IV SCH (19:42)
[2020-01-04 20:35] LABS: PHOSPHORUS 7.8 mg/dL (2.5-4.9)
[2020-01-04] MEDS: ATORVASTATIN CALCIUM 40MG TABLET PO SCH (20:39)
[2020-01-04 21:46] LABS: PLATELET ESTIMATE NORMAL
[2020-01-05] VITALS (101 sets, daily range): BP systolic 68–203; BP diastolic 24–180
[2020-01-05] MEDS: IPRATROPIUM/ALBUTEROL 0.5-3(2.5)MG/3ML NEB HHN SCH ×4 (00:53→21:46)
[2020-01-05 01:22] LABS: HEMATOCRIT. 27.8 % (42.0-52.0); HEMOGLOBIN. 9.2 g/dL (14.0-18.0); MEAN CORPUSCULAR HEMOGLOBIN 29.6 pg (28.0-32.0); MEAN CORPUSCULAR VOLUME 89.2 fL (80.0-94.0); MEAN PLATELET VOLUME 10.8 fl (7.4-10.4); PLATELET 349 x1000/uL (130-400); RED BLOOD CELL COUNT 3.12 mill/uL (4.7-6.1); RED CELL DISTRIBUTION WIDTH 14.6 % (11.6-14.6)
[2020-01-05 02:47] LABS: PLATELET ESTIMATE NORMAL
[2020-01-05] MEDS: PIPERACILLIN/TAZOBACTAM 2.25 G in DEXTROSE 5% WATER 50 ML IV SCH ×3 (05:39→21:07)
[2020-01-05] MEDS: MIDODRINE HCL 5MG TABLET NG SCH ×3 (05:41→21:08)
[2020-01-05] MEDS: BLOOD SUGAR DIAGNOSTIC STRIP TEST SCH ×3 (05:41→17:52)
[2020-01-05] MEDS: METOCLOPRAMIDE HCL 10MG TABLET PO SCH ×3 (05:42→18:34)
[2020-01-05 06:07] LABS: CHLORIDE 101 mEq/L (98-107)
[2020-01-05 06:46] LABS: PHOSPHORUS 9.6 mg/dL (2.5-4.9)
[2020-01-05] MEDS ORDERED: SODIUM POLYSTYRENE SULFONATE 15 G/60 ML BOT NG SCH (08:00)
[2020-01-05 08:02] LABS: HEMATOCRIT. 26.2 % (42.0-52.0); HEMOGLOBIN. 8.6 g/dL (14.0-18.0); MEAN CORPUSCULAR HEMOGLOBIN 29.2 pg (28.0-32.0); MEAN CORPUSCULAR VOLUME 89.2 fL (80.0-94.0); MEAN PLATELET VOLUME 11.1 fl (7.4-10.4); PLATELET 353 x1000/uL (130-400); RED BLOOD CELL COUNT 2.94 mill/uL (4.7-6.1); RED CELL DISTRIBUTION WIDTH 14.8 % (11.6-14.6)
[2020-01-05] MEDS ORDERED: LIDOCAINE HCL 1% 20ML VIAL (Pyxis) INJ ONE (08:29)
[2020-01-05 09:06] LABS: PLATELET ESTIMATE NORMAL
[2020-01-05] MEDS: PANTOPRAZOLE SODIUM 40 MG/VIAL IV SCH (10:30)
[2020-01-05] MEDS: DOXYCYCLINE HYCLATE 100MG CAPSULE PO SCH ×2 (10:31→21:08)
[2020-01-05] MEDS: INSULIN LISPRO 100 UNITS/ML SUBCUT SCH ×4 (10:31→21:00)
[2020-01-05] MEDS: PHENYLEPHRINE 40 MG in SODIUM CHLORIDE 0.9% 496 ML IV PRN (13:47)
[2020-01-05 16:05] LABS: HEMATOCRIT. 28.6 % (42.0-52.0); HEMOGLOBIN. 9.5 g/dL (14.0-18.0); MEAN CORPUSCULAR VOLUME 90.7 fL (80.0-94.0); MEAN PLATELET VOLUME 10.7 fl (7.4-10.4); PLATELET 375 x1000/uL (130-400); RED BLOOD CELL COUNT 3.15 mill/uL (4.7-6.1)
[2020-01-05 17:32] LABS: PLATELET ESTIMATE NORMAL
[2020-01-05] MEDS ORDERED: IOHEXOL-350 100 ML BOTTLE ONE (19:12)
[2020-01-05 19:46] LABS: HEMATOCRIT. 24.4 % (42.0-52.0); MEAN CORPUSCULAR HEMOGLOBIN 30.4 pg (28.0-32.0); MEAN CORPUSCULAR VOLUME 92.1 fL (80.0-94.0); MEAN PLATELET VOLUME 10.8 fl (7.4-10.4); PLATELET 345 x1000/uL (130-400); RED BLOOD CELL COUNT 2.65 mill/uL (4.7-6.1); RED CELL DISTRIBUTION WIDTH 15.1 % (11.6-14.6)
[2020-01-05 20:43] LABS: PLATELET ESTIMATE NORMAL
[2020-01-06] VITALS (96 sets, daily range): BP systolic 82–147; BP diastolic 44–95
[2020-01-06] MEDS: METOCLOPRAMIDE HCL 10MG TABLET PO SCH ×5 (00:48→23:48)
[2020-01-06] MEDS: BLOOD SUGAR DIAGNOSTIC STRIP TEST SCH ×5 (00:48→23:48)
[2020-01-06 01:54] LABS: HEMATOCRIT 28.8 % (42.0-52.0); HEMOGLOBIN 9.6 g/dL (14.0-18.0)
[2020-01-06] MEDS: IPRATROPIUM/ALBUTEROL 0.5-3(2.5)MG/3ML NEB HHN SCH ×4 (02:26→20:32)
[2020-01-06] MEDS: MIDODRINE HCL 5MG TABLET NG SCH ×3 (05:18→21:06)
[2020-01-06] MEDS: PIPERACILLIN/TAZOBACTAM 2.25 G in DEXTROSE 5% WATER 50 ML IV SCH ×3 (05:18→21:05)
[2020-01-06 05:52] LABS: HEMATOCRIT. 30.1 % (42.0-52.0); HEMOGLOBIN. 10.1 g/dL (14.0-18.0); MEAN CORPUSCULAR VOLUME 88.9 fL (80.0-94.0); MEAN PLATELET VOLUME 10.7 fl (7.4-10.4); PLATELET 315 x1000/uL (130-400); RED BLOOD CELL COUNT 3.38 mill/uL (4.7-6.1); RED CELL DISTRIBUTION WIDTH 15.8 % (11.6-14.6)
[2020-01-06 06:53] LABS: PLATELET ESTIMATE NORMAL
[2020-01-06] MEDS: PANTOPRAZOLE SODIUM 40 MG/VIAL IV SCH (09:54)
[2020-01-06] MEDS: DOXYCYCLINE HYCLATE 100MG CAPSULE PO SCH ×2 (10:01→21:05)
[2020-01-06] MEDS: INSULIN LISPRO 100 UNITS/ML SUBCUT SCH ×4 (10:02→21:06)
[2020-01-06 10:27] LABS: PHOSPHORUS 10.8 mg/dL (2.5-4.9)
[2020-01-07] VITALS (81 sets, daily range): BP systolic 104–166; BP diastolic 52–117
[2020-01-07] MEDS: IPRATROPIUM/ALBUTEROL 0.5-3(2.5)MG/3ML NEB HHN SCH ×5 (01:40→20:10)
[2020-01-07] MEDS: PIPERACILLIN/TAZOBACTAM 2.25 G in DEXTROSE 5% WATER 50 ML IV SCH ×3 (05:31→21:08)
[2020-01-07] MEDS: BLOOD SUGAR DIAGNOSTIC STRIP TEST SCH ×4 (05:31→23:13)
[2020-01-07] MEDS: METOCLOPRAMIDE HCL 10MG TABLET PO SCH ×4 (05:31→23:13)
[2020-01-07] MEDS: MIDODRINE HCL 5MG TABLET NG SCH ×3 (05:31→21:08)
[2020-01-07 06:47] LABS: HEMATOCRIT. 25.1 % (42.0-52.0); HEMOGLOBIN. 8.6 g/dL (14.0-18.0); MEAN CORPUSCULAR HEMOGLOBIN 30.8 pg (28.0-32.0); MEAN CORPUSCULAR VOLUME 89.9 fL (80.0-94.0); MEAN PLATELET VOLUME 10.1 fl (7.4-10.4); PLATELET 352 x1000/uL (130-400); RED BLOOD CELL COUNT 2.79 mill/uL (4.7-6.1); RED CELL DISTRIBUTION WIDTH 15.4 % (11.6-14.6)
[2020-01-07] MEDS ORDERED: INSULIN LISPRO 100 UNITS/ML SUBCUT SCH ×2 (09:00→12:00)
[2020-01-07] MEDS ORDERED: ALBUMIN HUMAN 25GM/100ML (25%) IV SCH (09:15)
[2020-01-07] MEDS: PANTOPRAZOLE SODIUM 40 MG/VIAL IV SCH (09:37)
[2020-01-07] MEDS: DOXYCYCLINE HYCLATE 100MG CAPSULE PO SCH ×2 (09:37→21:08)
[2020-01-07 10:10] LABS: PHOSPHORUS 9.6 mg/dL (2.5-4.9)
[2020-01-07 11:18] LABS: BG BASE EXCESS -7.8 mmol/L (-2.0-2.0); BG CARBOXYHEMOGLOBIN 0.3 % (0.5-1.5); BG CPAP (cmH2O) 0 cm(H2O); BG HCO3 ACT 18.8 mmol/L (22.0-26.0); BG METHEMOGLOBIN 0.3 % (0.0-1.5); BG OXYGEN SATURATION 90.9 % (92.0-98.5); BG OXYHEMOGLOBIN 90.4 % (94.0-97.0); BG PCO2 43.3 mmHg (35.0-45.0); BG PH 7.256 (7.350-7.450); BG PO2 74.3 mmHg (75.0-100.0); BG SAMPLE SITE RIGHT RADIAL; BG TOTAL HEMOGLOBIN 8.8 g/dL (12.0-18.0); BG VENT MODE VENT - CPAP
[2020-01-07] MEDS: INSULIN LISPRO 100 UNITS/ML SUBCUT SCH ×3 (11:45→23:13)
[2020-01-07 13:14] LABS: PLATELET ESTIMATE NORMAL
[2020-01-07 13:34] LABS: BG BILEVEL POS AIRWAY PRESSURE 15/5; BG CARBOXYHEMOGLOBIN 0.5 % (0.5-1.5); BG DEOXYHEMOGLOBIN 1.3 % (0.0-5.0); BG FRACTION INSPIRED OXYGEN 60; BG HCO3 ACT 19.4 mmol/L (22.0-26.0); BG METHEMOGLOBIN 0.5 % (0.0-1.5); BG OXYGEN SATURATION 98.7 % (92.0-98.5); BG OXYHEMOGLOBIN 97.7 % (94.0-97.0); BG PCO2 43.1 mmHg (35.0-45.0); BG PH 7.272 (7.350-7.450); BG PO2 198.9 mmHg (75.0-100.0); BG SAMPLE SITE RIGHT RADIAL; BG TOTAL HEMOGLOBIN 8.6 g/dL (12.0-18.0); BG VENT MODE MASK - BIPAP
[2020-01-07 17:10] LABS: HEMATOCRIT. 21.3 % (42.0-52.0); MEAN CORPUSCULAR HEMOGLOBIN 29.6 pg (28.0-32.0); MEAN CORPUSCULAR VOLUME 89.5 fL (80.0-94.0); MEAN PLATELET VOLUME 9.6 fl (7.4-10.4); PLATELET 350 x1000/uL (130-400); RED BLOOD CELL COUNT 2.38 mill/uL (4.7-6.1); RED CELL DISTRIBUTION WIDTH 15.5 % (11.6-14.6)
[2020-01-07 17:42] LABS: PLATELET ESTIMATE NORMAL
[2020-01-07] MEDS: ACETAMINOPHEN 650MG/20.3ML UDC PO PRN (21:50)
[2020-01-07] MEDS: HYDROCODONE/ACETAMINOPHEN 5/325MG TABLET PO PRN (23:19)
[2020-01-08] VITALS (68 sets, daily range): BP systolic 103–158; BP diastolic 55–96
[2020-01-08] MEDS: IPRATROPIUM/ALBUTEROL 0.5-3(2.5)MG/3ML NEB HHN SCH ×4 (01:15→20:53)
[2020-01-08 03:37] LABS: HEMATOCRIT. 28.7 % (42.0-52.0); HEMOGLOBIN. 9.6 g/dL (14.0-18.0); MEAN CORPUSCULAR HEMOGLOBIN 29.9 pg (28.0-32.0); MEAN CORPUSCULAR VOLUME 89.7 fL (80.0-94.0); MEAN PLATELET VOLUME 9.1 fl (7.4-10.4); PLATELET 319 x1000/uL (130-400); RED CELL DISTRIBUTION WIDTH 15.4 % (11.6-14.6)
[2020-01-08 03:43] LABS: CHLORIDE 102 mEq/L (98-107)
[2020-01-08 04:16] LABS: PHOSPHORUS 11.7 mg/dL (2.5-4.9)
[2020-01-08] MEDS: BLOOD SUGAR DIAGNOSTIC STRIP TEST SCH ×4 (05:37→23:30)
[2020-01-08] MEDS: INSULIN LISPRO 100 UNITS/ML SUBCUT SCH ×4 (05:38→23:31)
[2020-01-08] MEDS: METOCLOPRAMIDE HCL 10MG TABLET PO SCH ×4 (05:38→23:32)
[2020-01-08] MEDS: PIPERACILLIN/TAZOBACTAM 2.25 G in DEXTROSE 5% WATER 50 ML IV SCH ×3 (05:40→21:32)
[2020-01-08] MEDS: MIDODRINE HCL 5MG TABLET NG SCH ×3 (05:40→21:03)
[2020-01-08 07:09] LABS: PLATELET ESTIMATE NORMAL
[2020-01-08] MEDS ORDERED: ALBUMIN HUMAN 25GM/100ML (25%) IV NR (09:15)
[2020-01-08 09:20] LABS: BG BASE EXCESS -8.1 mmol/L (-2.0-2.0); BG BILEVEL POS AIRWAY PRESSURE ST=15/5; BG CARBOXYHEMOGLOBIN 1.4 % (0.5-1.5); BG DEOXYHEMOGLOBIN 4.2 % (0.0-5.0); BG FRACTION INSPIRED OXYGEN 35; BG HCO3 ACT 18.8 mmol/L (22.0-26.0); BG METHEMOGLOBIN 0.3 % (0.0-1.5); BG OXYGEN SATURATION 95.7 % (92.0-98.5); BG OXYHEMOGLOBIN 94.1 % (94.0-97.0); BG PCO2 44.3 mmHg (35.0-45.0); BG PH 7.246 (7.350-7.450); BG PO2 86.9 mmHg (75.0-100.0); BG SAMPLE SITE RIGHT RADIAL; BG TOTAL HEMOGLOBIN 10.9 g/dL (12.0-18.0); BG VENT MODE MASK - BIPAP; BG VENT RATE 14 set
[2020-01-08] MEDS ORDERED: NOREPINEPHRINE 32 MG in DEXT 5% WATER 468 ML IV PRN (09:30)
[2020-01-08] MEDS: PANTOPRAZOLE SODIUM 40 MG/VIAL IV SCH (09:37)
[2020-01-08] MEDS: DOXYCYCLINE HYCLATE 100MG CAPSULE PO SCH ×2 (09:37→21:03)
[2020-01-08] MEDS ORDERED: IPRATROPIUM/ALBUTEROL 0.5-3(2.5)MG/3ML NEB HHN PRN (09:45)
[2020-01-08] MEDS: ACETYLCYSTEINE 100MG/ML 10% VIAL 4ML INH SCH (12:35)
[2020-01-08] MEDS ORDERED: LIDOCAINE HCL 1% 20ML VIAL (Pyxis) INJ ONE (12:56)
[2020-01-08 16:41] LABS: BG BASE EXCESS -4.1 mmol/L (-2.0-2.0); BG BILEVEL POS AIRWAY PRESSURE 15/5; BG CARBOXYHEMOGLOBIN 0.9 % (0.5-1.5); BG HCO3 ACT 22.5 mmol/L (22.0-26.0); BG METHEMOGLOBIN 0.2 % (0.0-1.5); BG OXYGEN SATURATION 94.9 % (92.0-98.5); BG OXYHEMOGLOBIN 93.9 % (94.0-97.0); BG PCO2 48.2 mmHg (35.0-45.0); BG PH 7.287 (7.350-7.450); BG PO2 82.1 mmHg (75.0-100.0); BG SAMPLE SITE RIGHT RADIAL; BG TOTAL HEMOGLOBIN 10.4 g/dL (12.0-18.0); BG VENT MODE MASK - BIPAP; BG VENT RATE 14 set
[2020-01-08 17:32] LABS: HEMATOCRIT. 28.2 % (42.0-52.0); HEMOGLOBIN. 9.7 g/dL (14.0-18.0); MEAN CORPUSCULAR HEMOGLOBIN 30.7 pg (28.0-32.0); MEAN CORPUSCULAR VOLUME 89.4 fL (80.0-94.0); MEAN PLATELET VOLUME 9.7 fl (7.4-10.4); PLATELET 334 x1000/uL (130-400); RED BLOOD CELL COUNT 3.15 mill/uL (4.7-6.1); RED CELL DISTRIBUTION WIDTH 15.3 % (11.6-14.6)
[2020-01-08 18:04] LABS: PLATELET ESTIMATE NORMAL
[2020-01-09] VITALS (58 sets, daily range): BP systolic 80–152; BP diastolic 53–89
[2020-01-09] MEDS: ACETYLCYSTEINE 100MG/ML 10% VIAL 4ML INH SCH ×3 (00:38→16:03)
[2020-01-09] MEDS: IPRATROPIUM/ALBUTEROL 0.5-3(2.5)MG/3ML NEB HHN SCH ×6 (00:38→20:16)
[2020-01-09] MEDS: INSULIN LISPRO 100 UNITS/ML SUBCUT SCH ×3 (05:06→18:15)
[2020-01-09] MEDS: METOCLOPRAMIDE HCL 10MG TABLET PO SCH ×2 (05:06→12:43)
[2020-01-09] MEDS: MIDODRINE HCL 5MG TABLET NG SCH ×3 (05:06→21:03)
[2020-01-09] MEDS: BLOOD SUGAR DIAGNOSTIC STRIP TEST SCH ×3 (05:06→18:00)
[2020-01-09] MEDS: PIPERACILLIN/TAZOBACTAM 2.25 G in DEXTROSE 5% WATER 50 ML IV SCH ×2 (05:07→15:02)
[2020-01-09 06:23] LABS: HEMATOCRIT. 28.7 % (42.0-52.0); MEAN CORPUSCULAR HEMOGLOBIN 31.3 pg (28.0-32.0); MEAN CORPUSCULAR VOLUME 89.8 fL (80.0-94.0); PLATELET 367 x1000/uL (130-400); RED CELL DISTRIBUTION WIDTH 15.5 % (11.6-14.6)
[2020-01-09 06:30] LABS: CHLORIDE 105 mEq/L (98-107)
[2020-01-09 06:38] LABS: CREATINE KINASE 787 IU/L (39-308)
[2020-01-09 07:10] LABS: PHOSPHORUS 8.3 mg/dL (2.5-4.9)
[2020-01-09 09:06] LABS: PLATELET ESTIMATE NORMAL
[2020-01-09 09:32] LABS: BG BASE EXCESS -3.4 mmol/L (-2.0-2.0); BG BILEVEL POS AIRWAY PRESSURE ST=18/5; BG CARBOXYHEMOGLOBIN 1.2 % (0.5-1.5); BG DEOXYHEMOGLOBIN 5.9 % (0.0-5.0); BG FRACTION INSPIRED OXYGEN 35; BG HCO3 ACT 23.7 mmol/L (22.0-26.0); BG METHEMOGLOBIN 0.1 % (0.0-1.5); BG OXYHEMOGLOBIN 92.8 % (94.0-97.0); BG PCO2 52.3 mmHg (35.0-45.0); BG PH 7.274 (7.350-7.450); BG PO2 75.9 mmHg (75.0-100.0); BG SAMPLE SITE RIGHT RADIAL; BG TOTAL HEMOGLOBIN 10.6 g/dL (12.0-18.0); BG VENT MODE MASK - BIPAP; BG VENT RATE 16 set
[2020-01-09] MEDS: SEVELAMER CARBONATE 800 MG TABLET PO SCH ×3 (09:56→18:15)
[2020-01-09] MEDS: PANTOPRAZOLE SODIUM 40 MG/VIAL IV SCH (09:56)
[2020-01-09] MEDS ORDERED: METOCLOPRAMIDE HCL 10MG TABLET PO SCH (20:30)
[2020-01-09] MEDS ORDERED: METOCLOPRAMIDE HCL 5MG TABLET PO SCH (20:30)
[2020-01-10] VITALS (76 sets, daily range): BP systolic 109–157; BP diastolic 47–110
[2020-01-10] MEDS: BLOOD SUGAR DIAGNOSTIC STRIP TEST SCH ×4 (00:11→18:08)
[2020-01-10] MEDS: ACETYLCYSTEINE 100MG/ML 10% VIAL 4ML INH SCH ×3 (00:31→16:06)
[2020-01-10] MEDS: IPRATROPIUM/ALBUTEROL 0.5-3(2.5)MG/3ML NEB HHN SCH ×6 (00:31→21:20)
[2020-01-10] MEDS: CEFEPIME 2,000 MG in DEXT 5% WATER 100 ML IV SCH (02:20)
[2020-01-10] MEDS ORDERED: DOXYCYCLINE 100 MG in DEXT 5% WATER 100 ML IV SCH ×2 (03:00→09:00)
[2020-01-10] MEDS: MIDODRINE HCL 5MG TABLET NG SCH ×3 (05:15→21:20)
[2020-01-10] MEDS: INSULIN LISPRO 100 UNITS/ML SUBCUT SCH ×4 (05:16→18:00)
[2020-01-10 05:43] LABS: HEMATOCRIT. 28.5 % (42.0-52.0); HEMOGLOBIN. 9.7 g/dL (14.0-18.0); MEAN PLATELET VOLUME 9.7 fl (7.4-10.4); PLATELET 385 x1000/uL (130-400); RED BLOOD CELL COUNT 3.13 mill/uL (4.7-6.1); RED CELL DISTRIBUTION WIDTH 15.5 % (11.6-14.6)
[2020-01-10 05:46] LABS: CHLORIDE 106 mEq/L (98-107)
[2020-01-10 06:03] LABS: PHOSPHORUS 7.7 mg/dL (2.5-4.9)
[2020-01-10] MEDS: PANTOPRAZOLE SODIUM 40 MG/VIAL IV SCH (08:29)
[2020-01-10] MEDS: SEVELAMER CARBONATE 800 MG TABLET PO SCH ×3 (08:29→18:00)
[2020-01-10 09:32] LABS: PLATELET ESTIMATE NORMAL
[2020-01-10 10:13] LABS: BG BILEVEL POS AIRWAY PRESSURE ST=18/5; BG CARBOXYHEMOGLOBIN 0.9 % (0.5-1.5); BG DEOXYHEMOGLOBIN 3.5 % (0.0-5.0); BG FRACTION INSPIRED OXYGEN 35; BG HCO3 ACT 26.5 mmol/L (22.0-26.0); BG METHEMOGLOBIN 0.2 % (0.0-1.5); BG OXYGEN SATURATION 96.5 % (92.0-98.5); BG OXYHEMOGLOBIN 95.4 % (94.0-97.0); BG PCO2 51.5 mmHg (35.0-45.0); BG PH 7.329 (7.350-7.450); BG PO2 94.8 mmHg (75.0-100.0); BG SAMPLE SITE RIGHT BRACHIAL; BG TOTAL HEMOGLOBIN 10.8 g/dL (12.0-18.0); BG VENT MODE MASK - BIPAP; BG VENT RATE 16 set
[2020-01-10 11:58] LABS: INR 1.1
[2020-01-10] MEDS: DOXYCYCLINE HYCLATE 100MG CAPSULE GT SCH (15:54)
[2020-01-11] VITALS (69 sets, daily range): BP systolic 97–157; BP diastolic 53–94
[2020-01-11] MEDS: BLOOD SUGAR DIAGNOSTIC STRIP TEST SCH ×4 (00:24→17:37)
[2020-01-11] MEDS: INSULIN LISPRO 100 UNITS/ML SUBCUT SCH ×4 (00:30→17:37)
[2020-01-11] MEDS: IPRATROPIUM/ALBUTEROL 0.5-3(2.5)MG/3ML NEB HHN SCH ×6 (00:31→21:00)
[2020-01-11] MEDS: ACETYLCYSTEINE 100MG/ML 10% VIAL 4ML INH SCH ×3 (00:31→16:10)
[2020-01-11] MEDS: CEFEPIME 2,000 MG in DEXT 5% WATER 100 ML IV SCH (02:36)
[2020-01-11] MEDS: DOXYCYCLINE HYCLATE 100MG CAPSULE GT SCH ×2 (02:37→15:17)
[2020-01-11] MEDS: MIDODRINE HCL 5MG TABLET NG SCH ×3 (05:48→20:58)
[2020-01-11 06:27] LABS: HEMATOCRIT. 31.5 % (42.0-52.0); HEMOGLOBIN. 10.7 g/dL (14.0-18.0); MEAN CORPUSCULAR HEMOGLOBIN 30.8 pg (28.0-32.0); MEAN PLATELET VOLUME 9.7 fl (7.4-10.4); PLATELET 386 x1000/uL (130-400); RED BLOOD CELL COUNT 3.46 mill/uL (4.7-6.1); RED CELL DISTRIBUTION WIDTH 15.7 % (11.6-14.6)
[2020-01-11] MEDS: PANTOPRAZOLE 40MG DR TABLET PO SCH (07:50)
[2020-01-11] MEDS: SEVELAMER CARBONATE 800 MG TABLET PO SCH ×3 (09:15→17:58)
[2020-01-11] MEDS: PANTOPRAZOLE SODIUM 40 MG/VIAL IV SCH (09:15)
[2020-01-11 10:50] LABS: PLATELET ESTIMATE NORMAL
[2020-01-11] MEDS: HYDROCODONE/ACETAMINOPHEN 5/325MG TABLET PO PRN (21:00)
[2020-01-12] VITALS (12 sets, daily range): BP systolic 112–149; BP diastolic 54–78
[2020-01-12] MEDS: INSULIN LISPRO 100 UNITS/ML SUBCUT SCH ×4 (00:31→17:57)
[2020-01-12] MEDS: BLOOD SUGAR DIAGNOSTIC STRIP TEST SCH ×4 (00:31→17:42)
[2020-01-12] MEDS: ACETYLCYSTEINE 100MG/ML 10% VIAL 4ML INH SCH ×3 (01:06→16:16)
[2020-01-12] MEDS: IPRATROPIUM/ALBUTEROL 0.5-3(2.5)MG/3ML NEB HHN SCH ×6 (01:07→22:39)
[2020-01-12] MEDS: CEFEPIME 2,000 MG in DEXT 5% WATER 100 ML IV SCH (02:31)
[2020-01-12] MEDS: DOXYCYCLINE HYCLATE 100MG CAPSULE GT SCH ×2 (03:06→14:58)
[2020-01-12] MEDS: MIDODRINE HCL 5MG TABLET NG SCH (06:00)
[2020-01-12 07:43] LABS: HEMATOCRIT. 29.9 % (42.0-52.0); HEMOGLOBIN. 10.2 g/dL (14.0-18.0); MEAN CORPUSCULAR HEMOGLOBIN 30.9 pg (28.0-32.0); MEAN CORPUSCULAR VOLUME 90.7 fL (80.0-94.0); MEAN PLATELET VOLUME 9.7 fl (7.4-10.4); PLATELET 437 x1000/uL (130-400); RED BLOOD CELL COUNT 3.29 mill/uL (4.7-6.1); RED CELL DISTRIBUTION WIDTH 15.9 % (11.6-14.6)
[2020-01-12] MEDS: SEVELAMER CARBONATE 800 MG TABLET PO SCH ×3 (08:24→17:42)
[2020-01-12] MEDS: PANTOPRAZOLE 40MG DR TABLET PO SCH (08:25)
[2020-01-12 10:23] LABS: PLATELET ESTIMATE INCREASED
[2020-01-12 15:40] LABS: BG BASE EXCESS -0.5 mmol/L (-2.0-2.0); BG CARBOXYHEMOGLOBIN 1.3 % (0.5-1.5); BG DEOXYHEMOGLOBIN 4.7 % (0.0-5.0); BG FRACTION INSPIRED OXYGEN 28; BG HCO3 ACT 25.2 mmol/L (22.0-26.0); BG METHEMOGLOBIN 0.2 % (0.0-1.5); BG OXYGEN SATURATION 95.2 % (92.0-98.5); BG OXYHEMOGLOBIN 93.8 % (94.0-97.0); BG PCO2 46.1 mmHg (35.0-45.0); BG PH 7.356 (7.350-7.450); BG PO2 79.8 mmHg (75.0-100.0); BG SAMPLE SITE RIGHT RADIAL; BG TOTAL HEMOGLOBIN 9.9 g/dL (12.0-18.0); BG VENT MODE NASAL CANNULA
[2020-01-13] VITALS (13 sets, daily range): BP systolic 97–128; BP diastolic 51–90
[2020-01-13] MEDS: BLOOD SUGAR DIAGNOSTIC STRIP TEST SCH ×4 (00:22→17:55)
[2020-01-13] MEDS: INSULIN LISPRO 100 UNITS/ML SUBCUT SCH ×4 (00:23→17:57)
[2020-01-13] MEDS: IPRATROPIUM/ALBUTEROL 0.5-3(2.5)MG/3ML NEB HHN SCH ×5 (01:31→20:42)
[2020-01-13] MEDS: ACETYLCYSTEINE 100MG/ML 10% VIAL 4ML INH SCH ×2 (01:31→10:13)
[2020-01-13] MEDS: CEFEPIME 2,000 MG in DEXT 5% WATER 100 ML IV SCH (02:10)
[2020-01-13] MEDS: DOXYCYCLINE HYCLATE 100MG CAPSULE GT SCH ×2 (02:53→15:33)
[2020-01-13] MEDS: FAMOTIDINE 20MG TABLET PO SCH (06:42)
[2020-01-13 07:12] LABS: HEMATOCRIT. 26.7 % (42.0-52.0); HEMOGLOBIN. 8.9 g/dL (14.0-18.0); MEAN CORPUSCULAR HEMOGLOBIN 30.7 pg (28.0-32.0); MEAN CORPUSCULAR VOLUME 91.9 fL (80.0-94.0); MEAN PLATELET VOLUME 9.6 fl (7.4-10.4); PLATELET 355 x1000/uL (130-400); RED BLOOD CELL COUNT 2.91 mill/uL (4.7-6.1); RED CELL DISTRIBUTION WIDTH 15.8 % (11.6-14.6)
[2020-01-13] MEDS: SEVELAMER CARBONATE 800 MG TABLET PO SCH ×3 (08:25→17:30)
[2020-01-13 08:57] LABS: PHOSPHORUS 8.9 mg/dL (2.5-4.9)
[2020-01-13 14:52] LABS: PLATELET ESTIMATE NORMAL
[2020-01-13 16:11] LABS: BG BASE EXCESS 1.4 mmol/L (-2.0-2.0); BG CARBOXYHEMOGLOBIN 1.3 % (0.5-1.5); BG DEOXYHEMOGLOBIN 1.5 % (0.0-5.0); BG FRACTION INSPIRED OXYGEN 36; BG HCO3 ACT 28.2 mmol/L (22.0-26.0); BG METHEMOGLOBIN 0.2 % (0.0-1.5); BG OXYGEN SATURATION 98.5 % (92.0-98.5); BG PCO2 56.7 mmHg (35.0-45.0); BG PH 7.315 (7.350-7.450); BG PO2 136.8 mmHg (75.0-100.0); BG SAMPLE SITE RIGHT RADIAL; BG TOTAL HEMOGLOBIN 9.8 g/dL (12.0-18.0); BG VENT MODE NASAL CANNULA
[2020-01-14] VITALS (12 sets, daily range): BP systolic 102–117; BP diastolic 53–77
[2020-01-14] MEDS: IPRATROPIUM/ALBUTEROL 0.5-3(2.5)MG/3ML NEB HHN SCH ×6 (00:09→21:25)
[2020-01-14] MEDS: BLOOD SUGAR DIAGNOSTIC STRIP TEST SCH ×4 (00:39→17:52)
[2020-01-14] MEDS: INSULIN LISPRO 100 UNITS/ML SUBCUT SCH ×4 (00:39→17:51)
[2020-01-14] MEDS: CEFEPIME 2,000 MG in DEXT 5% WATER 100 ML IV SCH (02:01)
[2020-01-14] MEDS: DOXYCYCLINE HYCLATE 100MG CAPSULE GT SCH ×2 (03:27→15:40)
[2020-01-14] MEDS: FAMOTIDINE 20MG TABLET PO SCH (05:59)
[2020-01-14 06:04] LABS: HEMATOCRIT. 31.8 % (42.0-52.0); HEMOGLOBIN. 10.5 g/dL (14.0-18.0); MEAN CORPUSCULAR HEMOGLOBIN 30.8 pg (28.0-32.0); MEAN CORPUSCULAR VOLUME 93.7 fL (80.0-94.0); MEAN PLATELET VOLUME 10.4 fl (7.4-10.4); PLATELET 302 x1000/uL (130-400); RED CELL DISTRIBUTION WIDTH 15.9 % (11.6-14.6)
[2020-01-14] MEDS: SEVELAMER CARBONATE 800 MG TABLET PO SCH ×3 (07:35→17:52)
[2020-01-14 08:41] LABS: BG BASE EXCESS -4.3 mmol/L (-2.0-2.0); BG BILEVEL POS AIRWAY PRESSURE ST=15/5; BG CARBOXYHEMOGLOBIN 0.6 % (0.5-1.5); BG DEOXYHEMOGLOBIN 2.7 % (0.0-5.0); BG FRACTION INSPIRED OXYGEN 35; BG HCO3 ACT 21.6 mmol/L (22.0-26.0); BG METHEMOGLOBIN 0.2 % (0.0-1.5); BG OXYGEN SATURATION 97.3 % (92.0-98.5); BG OXYHEMOGLOBIN 96.5 % (94.0-97.0); BG PCO2 43.1 mmHg (35.0-45.0); BG PH 7.318 (7.350-7.450); BG PO2 108.9 mmHg (75.0-100.0); BG SAMPLE SITE RIGHT BRACHIAL; BG TOTAL HEMOGLOBIN 9.9 g/dL (12.0-18.0); BG VENT MODE MASK - BIPAP; BG VENT RATE 16 set
[2020-01-14 13:47] LABS: PLATELET ESTIMATE NORMAL
[2020-01-14] MEDS: SIMETHICONE 80MG TABLET CHEW PO SCH ×2 (17:52→22:03)
[2020-01-15] VITALS (10 sets, daily range): BP systolic 99–131; BP diastolic 52–73
[2020-01-15] MEDS: BLOOD SUGAR DIAGNOSTIC STRIP TEST SCH ×5 (00:28→23:50)
[2020-01-15] MEDS: INSULIN LISPRO 100 UNITS/ML SUBCUT SCH ×4 (00:29→18:00)
[2020-01-15] MEDS: IPRATROPIUM/ALBUTEROL 0.5-3(2.5)MG/3ML NEB HHN SCH ×6 (01:39→21:01)
[2020-01-15] MEDS: DOXYCYCLINE HYCLATE 100MG CAPSULE GT SCH ×2 (05:09→14:39)
[2020-01-15] MEDS: CEFEPIME 2,000 MG in DEXT 5% WATER 100 ML IV SCH (06:16)
[2020-01-15] MEDS: FAMOTIDINE 20MG TABLET PO SCH (06:16)
[2020-01-15 07:05] LABS: BASOPHILS % 0.9 % (0.0-2.0); EOSINOPHILS % 1.6 % (0.0-5.0); HEMATOCRIT. 27.7 % (42.0-52.0); HEMOGLOBIN. 9.2 g/dL (14.0-18.0); LYMPHOCYTES % 7.8 % (20.0-50.0); MEAN CORPUSCULAR HEMOGLOBIN 30.9 pg (28.0-32.0); MEAN CORPUSCULAR VOLUME 93.3 fL (80.0-94.0); MEAN PLATELET VOLUME 10.1 fl (7.4-10.4); MONOCYTES % 11.7 % (2.0-8.0); PLATELET 359 x1000/uL (130-400); RED BLOOD CELL COUNT 2.97 mill/uL (4.7-6.1); RED CELL DISTRIBUTION WIDTH 16.1 % (11.6-14.6)
[2020-01-15 08:07] LABS: PHOSPHORUS 8.5 mg/dL (2.5-4.9)
[2020-01-15] MEDS: SIMETHICONE 80MG TABLET CHEW PO SCH ×4 (08:25→20:25)
[2020-01-15] MEDS: SEVELAMER CARBONATE 800 MG TABLET PO SCH ×3 (08:25→18:29)
[2020-01-15] MEDS: METOCLOPRAMIDE HCL 10MG/2ML VIAL IV SCH ×3 (12:15→23:47)
[2020-01-15] MEDS ORDERED: CEFEPIME 1,000 MG in DEXTROSE 5% WATER 50 ML IV SCH (16:00)
[2020-01-15] MEDS: METRONIDAZOLE 500 MG PREMIX 100 ML IV SCH (18:26)
[2020-01-15] MEDS: CARVEDILOL 3.125 MG TABLET PO SCH (20:26)
[2020-01-16] VITALS (11 sets, daily range): BP systolic 99–124; BP diastolic 55–68
[2020-01-16] MEDS: IPRATROPIUM/ALBUTEROL 0.5-3(2.5)MG/3ML NEB HHN SCH ×5 (00:19→20:27)
[2020-01-16] MEDS: INSULIN LISPRO 100 UNITS/ML SUBCUT SCH ×4 (00:30→18:00)
[2020-01-16] MEDS: METRONIDAZOLE 500 MG PREMIX 100 ML IV SCH ×2 (03:46→15:38)
[2020-01-16] MEDS: FAMOTIDINE 20MG TABLET PO SCH (03:47)
[2020-01-16] MEDS: METOCLOPRAMIDE HCL 10MG/2ML VIAL IV SCH ×3 (03:47→18:19)
[2020-01-16] MEDS: DOXYCYCLINE HYCLATE 100MG CAPSULE GT SCH ×2 (03:47→15:21)
[2020-01-16] MEDS: BLOOD SUGAR DIAGNOSTIC STRIP TEST SCH ×3 (05:33→18:14)
[2020-01-16 06:55] LABS: PHOSPHORUS 4.9 mg/dL (2.5-4.9)
[2020-01-16 07:01] LABS: HEMATOCRIT. 28.8 % (42.0-52.0); HEMOGLOBIN. 9.4 g/dL (14.0-18.0); MEAN CORPUSCULAR HEMOGLOBIN 30.5 pg (28.0-32.0); MEAN CORPUSCULAR VOLUME 93.2 fL (80.0-94.0); MEAN PLATELET VOLUME 10.4 fl (7.4-10.4); PLATELET 330 x1000/uL (130-400); RED BLOOD CELL COUNT 3.09 mill/uL (4.7-6.1); RED CELL DISTRIBUTION WIDTH 16.5 % (11.6-14.6)
[2020-01-16] MEDS: SEVELAMER CARBONATE 800 MG TABLET PO SCH ×3 (08:09→18:19)
[2020-01-16] MEDS: CARVEDILOL 3.125 MG TABLET PO SCH ×2 (08:10→20:10)
[2020-01-16] MEDS: SIMETHICONE 80MG TABLET CHEW PO SCH ×4 (08:10→20:10)
[2020-01-16] MEDS ORDERED: CEFEPIME 2,000 MG in DEXT 5% WATER 100 ML IV SCH (09:00)
[2020-01-16 10:17] LABS: PLATELET ESTIMATE NORMAL
[2020-01-16 18:15] LABS: T4 FREE 1.07 ng/dL (0.76-1.46)
[2020-01-16 18:26] LABS: FOLIC ACID (FOLATE) SERUM 9.5 ng/mL (>5.38)
[2020-01-16] MEDS: CEFEPIME 1,000 MG in DEXTROSE 5% WATER 50 ML IV SCH (20:23)
[2020-01-17] VITALS (21 sets, daily range): BP systolic 75–136; BP diastolic 51–90
[2020-01-17] MEDS: BLOOD SUGAR DIAGNOSTIC STRIP TEST SCH ×4 (00:02→18:05)
[2020-01-17] MEDS: METOCLOPRAMIDE HCL 10MG/2ML VIAL IV SCH ×4 (00:02→18:05)
[2020-01-17] MEDS: INSULIN LISPRO 100 UNITS/ML SUBCUT SCH ×5 (00:03→23:22)
[2020-01-17] MEDS: IPRATROPIUM/ALBUTEROL 0.5-3(2.5)MG/3ML NEB HHN SCH ×5 (00:23→14:27)
[2020-01-17] MEDS: DOXYCYCLINE HYCLATE 100MG CAPSULE GT SCH ×2 (03:16→15:17)
[2020-01-17] MEDS: METRONIDAZOLE 500 MG PREMIX 100 ML IV SCH ×2 (03:16→16:18)
[2020-01-17 06:15] LABS: HEMATOCRIT. 28.1 % (42.0-52.0); HEMOGLOBIN. 9.2 g/dL (14.0-18.0); MEAN CORPUSCULAR HEMOGLOBIN 30.4 pg (28.0-32.0); MEAN CORPUSCULAR VOLUME 92.8 fL (80.0-94.0); MEAN PLATELET VOLUME 10.5 fl (7.4-10.4); PLATELET 342 x1000/uL (130-400); RED BLOOD CELL COUNT 3.02 mill/uL (4.7-6.1); RED CELL DISTRIBUTION WIDTH 16.2 % (11.6-14.6)
[2020-01-17] MEDS: FAMOTIDINE 20MG TABLET PO SCH (07:37)
[2020-01-17] MEDS: SIMETHICONE 80MG TABLET CHEW PO SCH ×4 (07:37→22:24)
[2020-01-17] MEDS: SEVELAMER CARBONATE 800 MG TABLET PO SCH ×3 (07:38→18:04)
[2020-01-17] MEDS: CARVEDILOL 3.125 MG TABLET PO SCH ×2 (09:43→21:00)
[2020-01-17] MEDS: ACETYLCYSTEINE 100MG/ML 10% VIAL 4ML INH SCH (14:28)
[2020-01-17 15:01] LABS: PLATELET ESTIMATE NORMAL
[2020-01-17 15:26] LABS: BG BASE EXCESS 2.1 mmol/L (-2.0-2.0); BG BILEVEL POS AIRWAY PRESSURE 15/5; BG DEOXYHEMOGLOBIN 3.6 % (0.0-5.0); BG FRACTION INSPIRED OXYGEN 35; BG HCO3 ACT 29.4 mmol/L (22.0-26.0); BG METHEMOGLOBIN 0.3 % (0.0-1.5); BG OXYGEN SATURATION 96.4 % (92.0-98.5); BG OXYHEMOGLOBIN 95.1 % (94.0-97.0); BG PCO2 60.8 mmHg (35.0-45.0); BG PH 7.303 (7.350-7.450); BG PO2 86.7 mmHg (75.0-100.0); BG SAMPLE SITE RIGHT BRACHIAL; BG TOTAL HEMOGLOBIN 10.6 g/dL (12.0-18.0); BG VENT MODE MASK - BIPAP
[2020-01-17] MEDS ORDERED: LORAZEPAM 2MG/ML CPJ IV PRN (16:45)
[2020-01-17] MEDS ORDERED: MORPHINE SULFATE 2 MG/ML CPJ (NOT FOR IM USE) IV PRN (16:45)
[2020-01-17] MEDS: CEFEPIME 1,000 MG in DEXTROSE 5% WATER 50 ML IV SCH (21:31)
[2020-01-17 22:42] LABS: BG BASE EXCESS -2.8 mmol/L (-2.0-2.0); BG CARBOXYHEMOGLOBIN 0.9 % (0.5-1.5); BG FRACTION INSPIRED OXYGEN 40; BG HCO3 ACT 23.5 mmol/L (22.0-26.0); BG METHEMOGLOBIN 0.2 % (0.0-1.5); BG OXYHEMOGLOBIN 96.9 % (94.0-97.0); BG PCO2 47.7 mmHg (35.0-45.0); BG PO2 112.6 mmHg (75.0-100.0); BG SAMPLE SITE RIGHT RADIAL; BG TIDAL VOLUME(mL) 500 mL; BG TOTAL HEMOGLOBIN 9.5 g/dL (12.0-18.0); BG VENT MODE VENT - A/C; BG VENT RATE 12 set
[2020-01-17] MEDS ORDERED: PROPOFOL 10MG/ML 100ML 100 ML IV PRN (23:15)
[2020-01-18] VITALS (29 sets, daily range): BP systolic 75–114; BP diastolic 32–67
[2020-01-18] MEDS: METOCLOPRAMIDE HCL 10MG/2ML VIAL IV SCH ×2 (01:24→05:20)
[2020-01-18] MEDS: ACETAMINOPHEN 650MG/20.3ML UDC PO PRN (01:24)
[2020-01-18] MEDS: METRONIDAZOLE 500 MG PREMIX 100 ML IV SCH (05:17)
[2020-01-18 05:58] LABS: HEMOGLOBIN. 8.4 g/dL (14.0-18.0); MEAN CORPUSCULAR HEMOGLOBIN 30.1 pg (28.0-32.0); MEAN CORPUSCULAR VOLUME 93.3 fL (80.0-94.0); MEAN PLATELET VOLUME 10.6 fl (7.4-10.4); PLATELET 264 x1000/uL (130-400); RED BLOOD CELL COUNT 2.78 mill/uL (4.7-6.1); RED CELL DISTRIBUTION WIDTH 16.5 % (11.6-14.6)
[2020-01-18] MEDS: BLOOD SUGAR DIAGNOSTIC STRIP TEST SCH ×2 (06:00)
[2020-01-18] MEDS: INSULIN LISPRO 100 UNITS/ML SUBCUT SCH (06:00)
[2020-01-18] MEDS: SIMETHICONE 80MG TABLET CHEW PO SCH (06:22)
[2020-01-18] MEDS: FAMOTIDINE 20MG TABLET PO SCH (06:22)
[2020-01-18] MEDS: SEVELAMER CARBONATE 800 MG TABLET PO SCH (06:23)
[2020-01-18 06:40] LABS: PHOSPHORUS 6.4 mg/dL (2.5-4.9)
[2020-01-18 07:47] LABS: PLATELET ESTIMATE NORMAL
[2020-01-18 08:32] LABS: BG BASE EXCESS -1.6 mmol/L (-2.0-2.0); BG CARBOXYHEMOGLOBIN 0.1 % (0.5-1.5); BG DEOXYHEMOGLOBIN 2.2 % (0.0-5.0); BG HCO3 ACT 25.1 mmol/L (22.0-26.0); BG METHEMOGLOBIN 0.6 % (0.0-1.5); BG OXYGEN SATURATION 97.8 % (92.0-98.5); BG OXYHEMOGLOBIN 97.1 % (94.0-97.0); BG PCO2 53.3 mmHg (35.0-45.0); BG PH 7.291 (7.350-7.450); BG SAMPLE SITE RIGHT RADIAL; BG TIDAL VOLUME(mL) 500 mL; BG TOTAL HEMOGLOBIN 8.1 g/dL (12.0-18.0); BG VENT MODE VENT - A/C; BG VENT RATE 12 set
[2020-01-18] MEDS: IPRATROPIUM/ALBUTEROL 0.5-3(2.5)MG/3ML NEB HHN SCH (08:39)
[2020-01-18] MEDS: ACETYLCYSTEINE 100MG/ML 10% VIAL 4ML INH SCH (08:39)
[2020-01-18] MEDS ORDERED: MORPHINE SULFATE 250 MG in DEXT 5% WATER 240 ML IV PRN ×2 (12:30→13:00)
[2020-01-18] MEDS: ATROPINE SULFATE 1% OPHTH 2ML SL SCH (22:32)
[2020-01-19] VITALS: BP_SYST 136; BP_SYST 83; BP_SYST 97; BP_DIAS 40; BP_DIAS 50; BP_DIAS 63
[2020-01-19 04:00] VITALS: BP 70/40
[2020-01-19] MEDS: ATROPINE SULFATE 1% OPHTH 2ML SL SCH ×3 (05:55→22:09)
[2020-01-19 20:00] VITALS: BP 88/46
[2020-01-20] VITALS (7 sets, daily range): BP systolic 67–128; BP diastolic 47–96
[2020-01-20] MEDS: ATROPINE SULFATE 1% OPHTH 2ML SL SCH (06:01)
== END 2020-01-20 09:50 | disposition expired | DRG 870 ==
LOC: ER 10:35 → CVICU 13:22 → EDBEDREQ 20:02 → EDBEDREQTM 20:02 → EDBEDREQSVC 20:02 → ENRESERV 12-25 02:33 → 5EST 01-11 19:00 → MICUNO 01-17 20:25 → 6EST 01-19 00:20
PROVIDERS: ADMIT Internal Medicine; ATTEND Internal Medicine
PROC: 5A1955Z Respiratory Ventilation, Greater than 96 Consecutive Hours (ICD-10-PCS; principal; 2019-12-24)
PROC: 0BH18EZ Insertion of Endotracheal Airway into Trachea, Via Natural or Artificial Opening Endoscopic (ICD-10-PCS; 2019-12-24)
PROC: 06HY33Z Insertion of Infusion Device into Lower Vein, Percutaneous Approach (ICD-10-PCS; 2019-12-24)
PROC: B54CZZA Ultrasonography of Left Lower Extremity Veins, Guidance (ICD-10-PCS; 2019-12-24)
PROC: 05HY33Z Insertion of Infusion Device into Upper Vein, Percutaneous Approach (ICD-10-PCS; 2019-12-31)
PROC: B54MZZA Ultrasonography of Right Upper Extremity Veins, Guidance (ICD-10-PCS; 2019-12-31)
PROC: 02HV33Z Insertion of Infusion Device into Superior Vena Cava, Percutaneous Approach (ICD-10-PCS; 2020-01-05)
PROC: B548ZZA Ultrasonography of Superior Vena Cava, Guidance (ICD-10-PCS; 2020-01-05)
PROC: 30233N1 Transfusion of Nonautologous Red Blood Cells into Peripheral Vein, Percutaneous Approach (ICD-10-PCS; 2020-01-07)
PROC: 0W993ZZ Drainage of Right Pleural Cavity, Percutaneous Approach (ICD-10-PCS; 2020-01-10)
PROC: 5A09457 Assistance with Respiratory Ventilation, 24-96 Consecutive Hours, Continuous Positive Airway Pressure (ICD-10-PCS; 2020-01-10)
PROC: 5A09357 Assistance with Respiratory Ventilation, Less than 24 Consecutive Hours, Continuous Positive Airway Pressure (ICD-10-PCS; 2020-01-13)
PROC: 5A09357 Assistance with Respiratory Ventilation, Less than 24 Consecutive Hours, Continuous Positive Airway Pressure (ICD-10-PCS; 2020-01-16)
PROC: 5A09357 Assistance with Respiratory Ventilation, Less than 24 Consecutive Hours, Continuous Positive Airway Pressure (ICD-10-PCS; 2020-01-17)
DX: A41.9 Sepsis, unspecified organism (principal); E43 Unspecified severe protein-calorie malnutrition; J96.01 Acute respiratory failure with hypoxia; R65.21 Severe sepsis with septic shock; J69.0 Pneumonitis due to inhalation of food and vomit; I21.4 Non-ST elevation (NSTEMI) myocardial infarction; J96.02 Acute respiratory failure with hypercapnia; G82.50 Quadriplegia, unspecified; G92 Toxic encephalopathy; K66.1 Hemoperitoneum; I50.23 Acute on chronic systolic (congestive) heart failure; N17.0 Acute kidney failure with tubular necrosis; E87.1 Hypo-osmolality and hyponatremia; K56.7 Ileus, unspecified; I42.9 Cardiomyopathy, unspecified; E87.0 Hyperosmolality and hypernatremia; I74.5 Embolism and thrombosis of iliac artery; D64.9 Anemia, unspecified; Z51.5 Encounter for palliative care; K80.20 Calculus of gallbladder without cholecystitis without obstruction; E78.5 Hyperlipidemia, unspecified; E78.00 Pure hypercholesterolemia, unspecified; E11.649 Type 2 diabetes mellitus with hypoglycemia without coma; E11.65 Type 2 diabetes mellitus with hyperglycemia; R74.0 Nonspecific elevation of levels of transaminase and lactic acid dehydrogenase [LDH]; R53.81 Other malaise; R13.10 Dysphagia, unspecified; G90.8 Other disorders of autonomic nervous system; I11.0 Hypertensive heart disease with heart failure; I25.10 Atherosclerotic heart disease of native coronary artery without angina pectoris; R58 Hemorrhage, not elsewhere classified; I48.0 Paroxysmal atrial fibrillation; E83.39 Other disorders of phosphorus metabolism; Z66 Do not resuscitate; Z82.49 Family history of ischemic heart disease and other diseases of the circulatory system; Z79.84 Long term (current) use of oral hypoglycemic drugs; Z79.1 Long term (current) use of non-steroidal anti-inflammatories (NSAID); Z79.899 Other long term (current) drug therapy; Z82.3 Family history of stroke; Z68.22 Body mass index [BMI] 22.0-22.9, adult; Z78.1 Physical restraint status; Z99.2 Dependence on renal dialysis; Z86.73 Personal history of transient ischemic attack (TIA), and cerebral infarction without residual deficits; Z83.3 Family history of diabetes mellitus
CPT/HCPCS: 32555; 36415; 36600; 70551; 71045; 71250; 73060; 73070; 74018; 74174; 74176; 74250; 76604; 76770; 76937; 80048; 80053; 80061; 80076; 80202; 82040; 82140; 82270; 82375; 82533; 82550; 82607; 82728; 82746; 82805; 82962; 83036; 83540; 83550; 83615; 83735; 83880; 84100; 84145; 84439; 84443; 84478; 84481; 84484; 84550; 85014; 85018; 85025; 85384; 86850; 86900; 86920; 87070; 88108; 88312; 92610; 93005; 93306; 93880; 93970; 94002; 94003; 94640; 94660; 94667; 97110; 97162; 97164; 97530; 99291; C1725; C1752; C9113; J0692; J1200; J1644; J1650; J1815; J1940; J2250; J2270; J2274; J2370; J2405; J2543; J2704; J2765; J3370; J3490; J7030; J7040; J7060; J7608; J8597; P9016; P9047; Q9963; Q9967